=== PATIENT | male | born 1990 | race Caucasian/White ===

== ENCOUNTER 2019-04-11 21:31 | Emergency (ER) | payer MEDICAID, SELFPAY ==
[2019-04-11 21:35] VITALS: BP 137/80; PULSE 102; RESP 20; TEMP 37.6; O2SAT 96; BMI 24.0
--- NOTE | 2019-04-11 21:45 | ED.GENADULT ---
HPI - General Adult General Chief complaint: Wound/Laceration Stated complaint: laceration to left hand Time Seen by Provider: 04/11/19 21:38 Source: patient Mode of arrival: ambulatory Limitations: no limitations History of Present Illness HPI narrative: 28-year-old male here for evaluation of a cut to the index finger of his left hand. He stated that he cut it on a knife earlier today. Came into the emergency department for evaluation Related Data Home Medications Medication Instructions Recorded Confirmed acetaminophen 325 mg PO PRN PRN #0 05/22/17 ibuprofen 400 mg PO TID PRN #0 05/22/17 Previous Rx's Medication Instructions Recorded clindamycin HCl 300 mg PO Q6H #28 cap 01/07/18 Review of Systems Constitutional Denies fever(s) Musculoskeletal Denies tingling Comments: Pain to left hand Integumentary/Breasts Comments: Cut to the left hand Neurologic Denies tingling Hematologic/Lymphatic Denies easy bleeding and Denies easy bruising [facility] Medical History (Updated 04/12/19 @ 03:01 by Jesus Rivas DO) Patient denies medical problems (Acute) Social History Smoking Status: Current every day smoker Social History Smoking Status: Current every day smoker Exam Initial Vital Signs Initial Vital Signs: Vital Signs Temperature 99.6 F 04/11/19 21:35 Pulse Rate 102 H 04/11/19 21:35 Respiratory Rate 20 04/11/19 21:35 Blood Pressure 137/80 04/11/19 21:35 Pulse Oximetry 96 04/11/19 21:35 HENMT Head: normal to inspection and normocephalic Cardio Pulses: radial pulses present on the left Skin Other: 4 cm ?be ?laceration to the radial aspect of the left index finger. No active bleeding. Neuro Sensory Exam: no sensory deficits noted Extrem General: capillary refill normal Psych Appearance: grossly normal and well kempt Procedures Laceration Repair Laceration 1: Site: hand Side (If applicable): left Size (cm): 4 Description: other (?V? shaped) Depth: simple, single layer Local Anesthetic: lidocaine 1% Amount of anesthesia used (mL): 5 Pre-repair: wound explored, irrigated extensively and deep structures intact Skin layer closed with: nylon Size (cm): 4-0 Number of sutures: 5 Technique: simple, interrupted Course Vital Signs - 8 hr 04/11/19 21:35 04/11/19 22:35 Temperature 99.6 F 99.3 F Pulse Rate 102 H 90 Respiratory Rate 20 16 Blood Pressure 137/80 132/76 Pulse Oximetry 96 97 Medical Decision Making MDM Narrative Medical decision making narrative: Neurovascularly intact. Laceration repaired as described above. He was given care instructions return precautions. He expressed understanding and agreement with plan. Discharge Plan Departure Patient Disposition: Home Clinical Impression: Laceration of finger of left hand Qualifiers: Encounter type: initial encounter Finger: index finger Damage to nail status: without damage Foreign body presence: without foreign body Qualified Code(s): S61.211A - Laceration without foreign body of left index finger without damage to nail, initial encounter Discharge Date/Time: 04/11/19 22:33 Interventions: ED Discharge Assessment Last Done: 04/11/19 22:35 Instructions: DI for Laceration Repair Activity Restrictions/Additional Instructions: Keep the bandage on for the next 24 hours. After that you can wash your hands like normal. Do not soak your hand in anything. The stitches do need to be removed in 7-10 days. Return to the emergency department for any new or worsening symptoms Prescriptions: No Action acetaminophen 325 MG tablet 325 mg PO PRN PRNQty: 0 RF: 0 ibuprofen 400 MG tablet 400 mg PO TID PRNQty: 0 RF: 0 clindamycin HCl 300 MG capsule 300 mg PO Q6H Qty: 28 RF: 0
[2019-04-11 22:35] VITALS: BP 132/76; PULSE 90; RESP 16; TEMP 37.4; O2SAT 97
== END 2019-04-11 22:33 | disposition home or self-care (01) ==
PROVIDERS: Emergency Provider Emergency Medicine
DX: S61.211A Laceration without foreign body of left index finger without damage to nail, initial encounter (principal); W26.0XXA Contact with knife, initial encounter
CPT/HCPCS: 12002; 99282; 99283

== ENCOUNTER 2020-08-08 07:37 | Emergency (ER) | payer MEDICAID, SELFPAY ==
[2020-08-08 07:45] VITALS: BP 157/76; PULSE 104; RESP 18; TEMP 36.9; O2SAT 99; BMI 23.0
[2020-08-08] MEDS: KETOROLAC 60 MG/2 ML VIAL 30 MG IM (08:12)
--- NOTE | 2020-08-08 08:15 | ED_ITS ---
HPI - Skin/Abscess/Foreign Bdy General Chief complaint: Skin/Abscess/Foreign Body Stated complaint: abscess or something in right arm Time Seen by Provider: 08/08/20 07:45 Source: patient Mode of arrival: Ambulatory Limitations: no limitations History of Present Illness HPI narrative: 29-year-old gentleman with a history of opioid and methamphetamine use disorder presents with increasing pain and redness in the ri ght forearm after injecting 2 days ago. He had not had any heroin for couple of days was in mild withdrawal and you some old cotton balls. He noted that he definitely was in the vein and had significant vasospasm immediately after injection. Warmth and erythema started within the last 6-12 hours. He describes no overall fevers. He has had nausea vomiting and abdominal pain all associated with heroin withdrawal. Related Data Home Medications Medication Instructions Recorded Confirmed acetaminophen 325 mg PO PRN PRN #0 05/22/17 ibuprofen 400 mg PO TID PRN #0 05/22/17 Previous Rx's Medication Instructions Recorded clindamycin HCl 300 mg PO Q6H #28 cap 01/07/18 buprenorphine-naloxone 1 film SL DAILY #4 each 08/08/20 clindamycin HCl 300 mg PO TID #21 cap 08/08/20 sulfamethoxazole-trimethoprim 1 tab PO BID #14 tab 08/08/20 Allergies Allergy/AdvReac Type Severity Reaction Status Date / Time No Known Drug Allergies Allergy Verified 08/08/20 07:52 Review of Systems Review of Systems Narrative: Multiple skin lesions from his methamphetamine use, poor dentition, history of a heart murmur. Remainder of review of systems is otherwise unremarkable other than as noted in HPI Patient History Medical History (Updated 08/08/20 @ 08:23 by Orly Portillo MD) Methamphetamine abuse (Acute) Opioid use disorder (Acute) Patient denies medical problems (Acute) Social History (Updated 08/08/20 @ 08:24 by Orly Portillo MD) Smoking Status: Current every day smoker additional social history: 08/08/2020 essentially homeless, currently living in a tent Smoking Status: Current every day smoker alcohol intake frequency: holidays/special occasions only Substance Use Type: heroin, methamphetamine and other Exam Narrative Exam Narrative: General: Chronically ill-appearing. Able to give a complete and coherent history. HEENT: Moist mucous membranes, normal sclera with reactive pupils, poor dentition Neck: No JVD, supple Respiratory: Lungs are clear to auscultation, no wheezing no rales no rhonchi. Full and symmetrical air movement Cardiac: Regular rate and rhythm no murmurs with careful auscultation, no bruits Skin: Multiple skin lesions over the face consistent with ?picking?. Neurologic: Grossly neurologically intact with no obvious asymmetries or abnormalities Extremities: Multiple track esquivel and well-healed areas of self cutting. Right forearm with cellulitis extending toward the elbow without obvious abscess. No warmth or tenderness at the elbow or wrist joint. Neurovascularly intact distally. Psych: Cooperative, appropriate insight and affect Initial Vital Signs Initial Vital Signs: Vital Signs Temperature 98.5 F 08/08/20 07:45 Pulse Rate 104 H 08/08/20 07:45 Respiratory Rate 18 08/08/20 07:45 Blood Pressure 157/76 H 08/08/20 07:45 Pulse Oximetry 99 08/08/20 07:45 Course Orders Ordered: Discontinued Medications Ketorolac Tromethamine (Toradol) 30 mg IM NOW ONE Stop: 08/08/20 08:02 Last Admin: 08/08/20 08:12 Dose: 30 mg Documented by: BTONER Vital Signs Vital signs: Vital Signs - 8 hr 08/08/20 07:45 Temperature 98.5 F Pulse Rate 104 H Respiratory Rate 18 Blood Pressure 157/76 H Pulse Oximetry 99 [facility] - Skin/Abscess/Foreign Bdy Medical Records Attestation: I reviewed the patient's medical records. Lab Data Attestation: I reviewed the patient's lab results. 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 He has been trying to significantly reduces heroin use and has plans to [facility] and begin Suboxone again. He has used Suboxone before and is familiar with precipitated withdrawal. He last used approximately 6 hours prior to arrival in is not appropriate to dose currently. Will give him 4 days of Suboxone to help with withdrawal symptoms as well as pain control with the cellulitis. He is safe for home discharge. Discharge Plan Departure Patient Disposition: Home Clinical Impression: Methamphetamine abuse, Opioid use disorder Cellulitis Qualifiers: Site of cellulitis: extremity Site of cellulitis of extremity: upper extremity Laterality: right Qualified Code(s): L03.113 - Cellulitis of right upper limb Instructions: DI for Cellulitis -- Adult Activity Restrictions/Additional Instructions: Thank you for coming in today You do have a cellulitis developing in your right arm that does not yet look like an abscess. I would expect the redness to get a little bit worse over the course of today but then began to improve after he started the antibiotics. If you feel that you are getting worse, developed significant fevers or an obvious abscess please return to the emergency department Please complete both the course of clindamycin and Septra. I have given you 4 days of Suboxone to use, 1 strip per day until you are able to get into [facility] later this week. We have talked about precipitated withdrawal, please make sure you do not take it until your withdrawal symptoms are significant enough. I wish you the best Prescriptions: New clindamycin HCl 300 mg capsule 300 mg PO TID Qty: 21 RF: 0 sulfamethoxazole-trimethoprim 800-160 mg tablet 1 tab PO BID Qty: 14 RF: 0 buprenorphine-naloxone 8-2 mg film 1 film SL DAILY Qty: 4 RF: 0 No Action acetaminophen 325 MG tablet 325 mg PO PRN PRNQty: 0 RF: 0 ibuprofen 400 MG tablet 400 mg PO TID PRNQty: 0 RF: 0 clindamycin HCl 300 MG capsule 300 mg PO Q6H Qty: 28 RF: 0
[2020-08-08 08:37] VITALS: BP 134/68; PULSE 85; RESP 18; O2SAT 100
== END 2020-08-08 08:37 | disposition home or self-care (01) ==
PROVIDERS: Emergency Provider Emergency Medicine
DX: L03.113 Cellulitis of right upper limb (principal); F15.10 Other stimulant abuse, uncomplicated; F11.99 Opioid use, unspecified with unspecified opioid-induced disorder
CPT/HCPCS: 96372; 99283; J1885

== ENCOUNTER 2020-09-15 20:33 | Emergency (ER) | payer MEDICAID, SELFPAY ==
[2020-09-15 20:35] VITALS: BP 133/85; PULSE 94; RESP 14; TEMP 36.8; O2SAT 100; BMI 22.3
--- NOTE | 2020-09-15 20:44 | DI.RAD.S_ITS ---
PROCEDURE: XR ANKLE RT MIN 3V INDICATIONS: rolled ankle TECHNIQUE: 3 views of the ankle were acquired. COMPARISON: None. FINDINGS: Bones: No fractures or dislocations. Ankle mortise is normally aligned. No suspicious bony lesions. Soft tissues: There is soft tissue swelling over the lateral malleolus. There is a small tibiotalar joint effusion. Achilles tendon appears normal. IMPRESSION: 1. No fracture or dislocation. Dictated by: Adrian Almodovar M.D. on 09/15/2020 at 21:55 Approved by: Adrian Almodovar M.D. on 09/15/2020 at 21:56
== END 2020-09-15 21:58 | disposition left against medical advice (07) ==
PROVIDERS: Emergency Provider Emergency Medicine
DX: S99.911A Unspecified injury of right ankle, initial encounter (principal)
CPT/HCPCS: 73610; 99283

== ENCOUNTER 2021-06-10 17:26 | Inpatient (IN) | payer MEDICAID, SELFPAY ==
[2021-06-10] VITALS (11 sets, daily range): BP systolic 125–158; BP diastolic 71–87; PULSE 76–107; RESP 11–25; TEMP 36.8–38.1; O2SAT 92–100; BMI 23.5
--- NOTE | 2021-06-10 17:54 | DI.RAD.S_ITS ---
PROCEDURE: XR CHEST 1V INDICATIONS: suspected sepsis TECHNIQUE: One view of the chest was acquired. COMPARISON: [facility], , CHEST 1 VIEW, 10/19/2017, 22:22. FINDINGS: Surgical changes and devices: None. Lungs and pleura: Lungs are clear. No pleural effusions or pneumothorax. Mediastinum: Mediastinal contours appear normal. Heart size is normal. Bones and chest wall: No suspicious bony lesions. Overlying soft tissues appear unremarkable. IMPRESSION: No acute cardiopulmonary disease. Dictated by: Ju Willis M.D. on 06/10/2021 at 18:53 Approved by: Ju Willis M.D. on 06/10/2021 at 18:53
--- NOTE | 2021-06-10 18:16 | DI.RAD.S_ITS ---
PROCEDURE: XR TIBIA FIBULA LT 2V INDICATIONS: wound TECHNIQUE: 2 views of the tibia and fibula were acquired. COMPARISON: None. FINDINGS: Bones: No fractures or dislocations. No suspicious bony lesions. Soft tissues: No suspicious soft tissue calcifications or masses. Soft tissue defect over the anterior pretibial tissues without underlying foreign body, soft tissue gas, or periostitis. IMPRESSION: 1. Pretibial wound without underlying bone changes to suggest osteomyelitis, however radiographs are insensitive in the early phase of osteomyelitis. Dictated by: Ju Willis M.D. on 06/10/2021 at 18:53 Approved by: Ju Willis M.D. on 06/10/2021 at 18:54
[2021-06-10] MEDS: SODIUM CHLORIDE 0.9% 1,000 ML 1000 ML IV (18:41)
[2021-06-10 18:45] LABS: Add Manual Diff / Slide Review NO; Basophils Absolute Auto 200 /uL (0-100); Basophils Percent Auto 1.6 % (0-2); Eosinophils Absolute Auto 100 /uL (0-450); Eosinophils Percent Auto 0.5 % (2-4); Hematocrit 33.5 % (41-53); Hemoglobin 10.8 g/dL (13.5-17.5); Lymphocytes Absolute Auto 1100 /uL (1100-4500); Lymphocytes Percent Auto 8.7 % (25-40); Mean Corpuscular HGB Conc 32.1 % (30-36); Mean Corpuscular Hemoglobin 25.9 PG (26-34); Mean Corpuscular Volume 80.8 fL (80-100); Monocytes Absolute Auto 700 /uL (0-900); Monocytes Percent Auto 5.6 % (3-14); Neutrophils Absolute Auto 11100 /uL (1500-7000); Neutrophils Percent Auto 83.6 % (50-75); Platelet Count 322 X10^3/uL (150-400); Red Blood Cell Count 4.15 X10^6/uL (4.5-5.9); White Blood Cell Count 13.3 X10^3/uL (4.5-11.0)
--- NOTE | 2021-06-10 18:46 | ED_ITS ---
HPI - Fever General Chief Complaint: Fever Stated Complaint: MRSA Right Lower Leg Time Seen by Provider: 06/10/21 18:06 Source: patient Mode of arrival: Wheelchair Limitations: no limitations History of Present Illness HPI Narrative: This is a 30-year-old male comes emergency department with complaint of left lower leg infection. Patient states it started as a scrape on his left kruger 9 days ago and increasing breakdown of the skin, redness and now drainage. Patient states he was seen at [facility] and prescribed antibiotics but never took them. Patient states over the last 2 or 3 days he has developed fevers and hot flashes. He has had a little sensation of shortness of breath no chest pain or pressure. Some nausea occasional vomiting. He denies any diarrhea or constipation. He states he has had some occasional tingling particularly when he sleeping. He has quite a bit of pain flexion- extension. And at the site. He has had increasing spreading redness. Patient denies any major medical issues. He does admit to heroin and methamphetamine abuse and uses IV drugs. He states he is not injected at that location in the past. Patient uses tobacco, he does use alcohol occasionally. He does not have a primary care physician. Related Data Home Medications Medication Instructions Recorded Confirmed No Known Home Medications 06/10/21 06/10/21 Allergies Allergy/AdvReac Type Severity Reaction Status Date / Time No Known Drug Allergies Allergy Verified 09/15/20 20:40 Review of Systems Review of Systems ROS Unobtainable: All systems reviewed & are unremarkable except as noted in HPI and below Patient History Medical History (Updated 06/10/21 @ 23:05 by Dayo Purcell MD) Heroin user Methamphetamine abuse Opioid use disorder Patient denies medical problems Social History marital status: number of children: 2 household members: friend(s) housing: homeless ( stays with friends) Smoking Status: Current every day smoker additional social history: 08/08/2020 essentially homeless, currently living in a tent Smoking Status: Current every day smoker alcohol intake frequency: holidays/special occasions only Substance Use Type: heroin, methamphetamine and other Exam Narrative Exam Narrative: GENERAL: Alert and oriented x three, male in mild distress. HEENT: Head normocephalic, atraumatic, EOMI, pupils reactive, face symmetric, moist mucous membranes NECK: Supple, full range of motion CARDIOVASCULAR: Regular rate and rhythm without murmurs, rubs or gallops. RESPIRATORY: Breath sounds equal bilaterally, no wheezes rales or rhonchi. ABDOMEN: Soft, nontender. Normoactive bowel sounds all 4 quadrants. No guarding or rebound, rigidity, no mass : No CVA tenderness EXTREMITIES: Normal range of motion, no clubbing. Patient has 2 wounds on his anterior kruger a larger is approximately 4 x 3 cm into the subcutaneous tissue. I do not appreciate any obvious bone but he does have obvious purulent drainage there is a smaller wound that is about 1/2 by 1 cm that is not as deep but to the skin and draining purulent fluid. Patient has surrounding erythema spreading and somewhat circumferential with some or other small scabbed and healing wounds in various locations of his lower extremity. Patient has swelling of the lower extremity but stops at the foot where his sock line is. He has 2+ dorsalis pedis P. Normal sensation. He has normal range of motion but has have increased pain with dorsiflexion and plantar flexion. NEUROLOGICAL: Cranial nerves II through XII grossly intact. Moving all extremities SKIN: Warm, dry, no petechiae, no rashes. 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) Stat Complete Blood Count AUTO DIFF Stat Comprehensive Metabolic Panel Stat Ethanol (ETOH) Stat Lactate (Lactic Acid) Stat Lipase Stat Procalcitonin Stat 06/10/21 19:25 Wound Culture and Gram Stain Stat 06/10/21 20:58 Urine Drug Screen, Rapid Stat Acetaminophen (Acetaminophen 325 Mg Tablet) 650 mg PO Q6HR PRN PRN Reason: Fever/Mild Pain (1-3) Last Admin: 06/11/21 00:13 Dose: 650 mg Documented by: ABIOLA Docusate Sodium (Docusate 100 Mg Capsule) 100 mg PO BID [facility] Last Admin: 06/10/21 22:47 Dose: 100 mg Documented by: JEFF Enoxaparin Sodium (Enoxaparin 40 Mg/0.4 Ml Syringe) 40 mg SUBCUT DAILY [facility] Sodium Chloride (Normal Saline 0.9%) 1,000 mls @ 100 mls/hr IV CONT [facility] Last Admin: 06/10/21 22:48 Dose: 100 mls/hr Documented by: JEFF Piperacillin Sod/Tazobactam (Sod 3.375 gm/ Sodium Chloride) 100 mls @ 25 mls/hr IV Q8H [facility] Vancomycin HCl/Dextrose (Vancomycin) 1,500 mg in 300 mls @ 200 mls/hr IV Q12H [facility] Ketorolac Tromethamine (Ketorolac 30 Mg/Ml Vial) 30 mg IV Q6HR PRN PRN Reason: Pain, Severe (7-10) Stop: 06/15/21 21:09 Last Admin: 06/11/21 00:14 Dose: 30 mg Documented by: ABIOLA Morphine Sulfate (Morphine 2 Mg/Ml Inj) 2 mg IV Q3H PRN PRN Reason: Pain, Severe (7-10) Naloxone HCl (Naloxone 0.4 Mg/Ml Vial) 0.2 mg IV Q2MIN PRN PRN Reason: Opiate Reversal Ondansetron HCl (Ondansetron 4 Mg/2 Ml Inj) 4 mg IV Q8HR PRN PRN Reason: Nausea And Vomiting Pantoprazole Sodium (Pantoprazole Dr 20 Mg Tablet) 20 mg PO 0700,2100 [facility] Vancomycin HCl (Vancomycin Per Pharmacy) 1 request MISC NOW ONE Stop: 06/10/21 21:15 Discontinued Medications Sodium Chloride (Normal Saline 0.9%) 1,000 mls @ 1,000 mls/hr IV BOLUS ONE Stop: 06/10/21 18:53 Last Infusion: 06/10/21 19:33 Dose: 0 mls/hr Documented by: Admin: 06/10/21 18:41 Dose: 1,000 mls/hr Documented by: KASSY Vancomycin HCl/Dextrose (Vancomycin) 1,500 mg in 300 mls @ 200 mls/hr IV NOW ONE Stop: 06/10/21 20:25 Last Infusion: 06/10/21 21:12 Dose: 0 mls/hr Documented by: CTR.HANDER Admin: 06/10/21 19:32 Dose: 200 mls/hr Documented by: CTR.HANDER Piperacillin Sod/Tazobactam (Sod 4.5 gm/ Sodium Chloride) 100 mls @ 200 mls/hr IV NOW ONE Stop: 06/10/21 22:29 Last Admin: 06/11/21 00:12 Dose: 200 mls/hr Documented by: ABIOLA Consultations Consultation #1: PATRICIA Howard, accepts asks for general surgery consult and add on etoh and rapid drug screen. Saw patient here in the department. Consultation #2: Dr. Purcell, happy to follow with patient for open infected wounds on anterior right leg. Time: 21:00 Vital Signs Vital signs: Vital Signs - 8 hr 06/10/21 19:30 06/10/21 20:00 06/10/21 20:01 Pulse Rate 86 88 98 H Respiratory Rate 11 L 20 25 H Blood Pressure 138/81 Pulse Oximetry 100 92 92 MDM - Fever Lab Data Result diagrams: 06/10/21 18:30 06/10/21 18:30 Labs: Lab Results 06/10/21 06/10/21 06/10/21 Range/Units 18:30 18:30 18:30 WBC 13.3 H (4.5-11.0) X10^3/uL RBC 4.15 L (4.5-5.9) X10^6/uL Hgb 10.8 L (13.5-17.5) g/dL Hct 33.5 L (41-53) % MCV 80.8 (80-100) fL MCH 25.9 L (26-34) PG MCHC 32.1 (30-36) % RDW 15.0 H (11.6-14.8) % Plt Count 322 (150-400) X10^3/uL Neut % (Auto) 83.6 H (50-75) % Lymph % (Auto) 8.7 L (25-40) % [place] % (Auto) 5.6 (3-14) % Eos % (Auto) 0.5 L (2-4) % Baso % (Auto) 1.6 (0-2) % Neut # (Auto) 55467 H (0121-7298) /uL Lymph # (Auto) 1100 (9788-2526) /uL [place] # (Auto) 700 (0-900) /uL Eos # (Auto) 100 (0-450) /uL Baso # (Auto) 200 H (0-100) /uL Sodium 138 (137-145) mmol/L Potassium 4.1 (3.4-5.1) mmol/L Chloride 106 (98-107) mmol/L Carbon Dioxide 27 (22-32) mmol/L BUN 14 (9-20) mg/dL Creatinine 0.75 (0.66-1.25) mg/dL Estimated GFR > 60.0 (>60) mL/min BUN/Creatinine Ratio 18.7 (6-22) Glucose 108 H (70-100) mg/dL Lactate 0.7 (0.7-2.1) mmol/L Calcium 8.5 (8.4-10.2) mg/dL Total Bilirubin 0.2 (0.2-1.3) mg/dL AST 16 L (17-59) IU/L ALT 7 (<50) IU/L Alkaline Phosphatase 54 (38-126) U/L Total Protein 6.8 (6.3-8.2) g/dL Albumin 3.5 (3.5-5.0) g/dL Globulin 3.3 (1.7-4.1) g/dL Albumin/Globulin Ratio 1.1 (1.0-2.8) Lipase 50 (23-300) U/L Procalcitonin 0.42 (<0.5) ng/mL Ethyl Alcohol ( - 10) mg/dL SARS-CoV-2 (PCR) (Negative) 06/10/21 06/10/21 Range/Units 18:30 18:30 WBC (4.5-11.0) X10^3/uL RBC (4.5-5.9) X10^6/uL Hgb (13.5-17.5) g/dL Hct (41-53) % MCV (80-100) fL MCH (26-34) PG MCHC (30-36) % RDW (11.6-14.8) % Plt Count (150-400) X10^3/uL Neut % (Auto) (50-75) % Lymph % (Auto) (25-40) % [place] % (Auto) (3-14) % Eos % (Auto) (2-4) % Baso % (Auto) (0-2) % Neut # (Auto) (0191-9029) /uL Lymph # (Auto) (8549-1650) /uL [place] # (Auto) (0-900) /uL Eos # (Auto) (0-450) /uL Baso # (Auto) (0-100) /uL Sodium (137-145) mmol/L Potassium (3.4-5.1) mmol/L Chloride (98-107) mmol/L Carbon Dioxide (22-32) mmol/L BUN (9-20) mg/dL Creatinine (0.66-1.25) mg/dL Estimated GFR (>60) mL/min BUN/Creatinine Ratio (6-22) Glucose (70-100) mg/dL Lactate (0.7-2.1) mmol/L Calcium (8.4-10.2) mg/dL Total Bilirubin (0.2-1.3) mg/dL AST (17-59) IU/L ALT (<50) IU/L Alkaline Phosphatase (38-126) U/L Total Protein (6.3-8.2) g/dL Albumin (3.5-5.0) g/dL Globulin (1.7-4.1) g/dL Albumin/Globulin Ratio (1.0-2.8) Lipase (23-300) U/L Procalcitonin (<0.5) ng/mL Ethyl Alcohol < 10 ( - 10) mg/dL SARS-CoV-2 (PCR) Negative (Negative) Imaging Data Extremity x-ray #1: Radiologist's Impression: Launch?[address] [address] XRay Report Signed Patient: Ambrose Jean-Baptiste MR#: [id number] : 1990 Acct:[id number] Age/Sex: 30 / M Date of Service: 06/10/21 Loc: ED Accession Number: [id number] ?? Procedure: XR tibia fibula LT 2V Ordering Provider: Greta Ambrose D.O. PROCEDURE:? XR TIBIA FIBULA LT 2V ? INDICATIONS:? wound ? TECHNIQUE:? 2 views of the tibia and fibula were acquired.? ? COMPARISON:? None. ? FINDINGS:? ? Bones:? No fractures or dislocations.? No suspicious bony lesions.? ? Soft tissues:? No suspicious soft tissue calcifications or masses.? Soft tissue defect over the anterior pretibial tissues without underlying foreign body, soft tissue gas, or periostitis. ? IMPRESSION:? 1. Pretibial wound without underlying bone changes to suggest osteomyelitis, however radiographs are insensitive in the early phase of osteomyelitis.? ? ? Dictated by: Ju Willis M.D. on 06/10/2021 at 18:53 ? ? Approved by: Ju Willis M.D. on 06/10/2021 at 18:54?? Chest x-ray: Radiologist's Impression: [address] [address] XRay Report Signed Patient: Ambrose Jean-Baptiste MR#: [id number] : 1990 Acct:[id number] Age/Sex: 30 / M Date of Service: 06/10/21 Loc: ED Accession Number: [id number] ?? Procedure: XR chest 1V Ordering Provider: Karena Romo D.O. PROCEDURE:? XR CHEST 1V ? INDICATIONS:? suspected sepsis ? TECHNIQUE:? One view of the chest was acquired.? ? COMPARISON:? [facility], , CHEST 1 VIEW, 10/19/2017, 22:22. ? FINDINGS:? ? Surgical changes and devices:? None.? ? Lungs and pleura:? Lungs are clear.? No pleural effusions or pneumothorax.? ? Mediastinum:? Mediastinal contours appear normal.? Heart size is normal.? ? Bones and chest wall:? No suspicious bony lesions.? Overlying soft tissues appear unremarkable.? ? IMPRESSION:? No acute cardiopulmonary disease.? ? ? Dictated by: Ju Willis M.D. on 06/10/2021 at 18:53 ? ? Approved by: Ju Willis M.D. on 06/10/2021 at 18:53?? ECG Data Attestation: I personally reviewed and interpreted this ECG as follows: Interpretation: Normal sinus rhythm rate of 70 9p are 138 QRS 80 QTC 433. No acute ST changes appreciated. MDM Narrative Medical decision making narrative: This is a 30-year-old male who comes with complaint infection in his right lower leg. Patient meets septic criteria with fever and tachycardia, white count is 13. Patient has obvious source of infection 2 open wound draining purulent fluid on his right anterior kruger. Patient was started on vancomycin. Patient does have a history of IV drug abuse using methamphetamine and heroin. Patient states his last use was prior to arrival in department and he is currently not having any withdrawal symptoms. He denies injecting at that particular location. Patient's labs were reviewed. X-ray does not show any acute bony changes retained foreign bodies. Spoke with the hospitalist who accepts. Wound culture was sent and general surgery was consulted at the hospitalist request. Discharge Plan Departure Patient Disposition: Admitted As Inpatient Clinical Impression: Cellulitis and abscess of left leg Admit Date/Time: 06/10/21 20:49 Admit Provider: Shawna Howard
[2021-06-10 18:49] LABS: Lactate (Lactic Acid) 0.7 mmol/L (0.7-2.1)
[2021-06-10 18:50] LABS: Alanine Aminotransferase 7 IU/L (<50); Albumin 3.5 g/dL (3.5-5.0); Albumin Globulin Ratio 1.1 (1.0-2.8); Alkaline Phosphatase 54 U/L (38-126); Aspartate Aminotransferase 16 IU/L (17-59); BUN Creatinine Ratio 18.7 (6-22); Bilirubin Total 0.2 mg/dL (0.2-1.3); Blood Urea Nitrogen 14 mg/dL (9-20); Calcium 8.5 mg/dL (8.4-10.2); Carbon Dioxide 27 mmol/L (22-32); Chloride 106 mmol/L (98-107); Estimated Glomerular Filt Rate > 60.0 mL/min (>60); Globulin 3.3 g/dL (1.7-4.1); Glucose 108 mg/dL (70-100); HEMOLYSIS < 15 (0-50); Lipase 50 U/L (23-300); Potassium 4.1 mmol/L (3.4-5.1); Sodium 138 mmol/L (137-145); Total Protein 6.8 g/dL (6.3-8.2)
[2021-06-10 19:06] LABS: Procalcitonin 0.42 ng/mL (<0.5)
[2021-06-10] MEDS: VANCOMYCIN 1,500 MG/300 ML PIGGYBACK 200 MG IV (19:32)
[2021-06-10 19:34] LABS: COVID19 - ADMIT (NP swab/PCR) Negative (Negative)
[2021-06-10 20:47] LABS: Ethanol (ETOH) < 10 mg/dL
[2021-06-10 21:09] LABS: UR Morphine/Opiate cutoff 300 Positive (Negative); Ur Creatinine Normal (Normal); Ur Specific Gravity Normal (Normal); Urine Amphetamines Positive (Negative); Urine Barbiturates Negative (Negative); Urine Benzodiazepines Negative (Negative); Urine Cocaine Negative (Negative); Urine MDMA Negative (Negative); Urine Methadone Negative (Negative); Urine Methamphetamines Positive (Negative); Urine Oxycodone Negative (Negative); Urine Phencyclidine Negative (Negative); Urine Tetrahydrocannabinol Negative (Negative); Urine Tricyclic Antidepressant Negative (Negative); Urine pH Normal (Normal)
--- NOTE | 2021-06-10 21:26 | P.HP_ITS ---
History of Present Illness History of Present Illness Date Patient Seen: 06/10/21 Time Patient Seen: 21:00 Chief complaint: MRSA Right Lower Leg Narrative: Ambrose Jean-Baptiste is a 30-year-old male with a history of ongoing and current IV drug use with heroin and methamphetamine presented today to the emergency department with a wound on his left anterior kruger. He was seen at [facility] emergency department approximately week and half ago and was discharged on oral antib iotics. Patient states he was unable to get the antibiotics. He states that he was trying to get into a friend's truck and scraped his leg against it and cut himself. He denies injecting himself on his anterior lower legs. Denies He does not see a medical provider regularly. He came back in today because he had a subjective fever for the past few days has had nausea, chills, sweats but denies shortness of breath vomiting. He does state he has been told he has a heart murmur. Tib fib x-ray ordered in the ED indicated ?Pretibial wound without underlying bone changes to suggest osteomyelitis, however radiographs are insensitive in the early phase of osteomyelitis.Patient's temp is 100.5?, blood pressure 138/81, heart rate 98, respiratory rate 25, oxygen saturation 92% on room air, he weighs 72.5 kg. Has an elevated WBC of 13.3, RBC 4.15, hemoglobin 10.8, hematocrit 33.5, platelet count 322, has a left shift of 11,000, metabolic panel is essentially within normal limits with exception of a mildly elevated glucose at 1:08 a.m., liver enzymes within normal limits, he is positive for opiates amphetamine and methamphetamines in his urine. Alcohol level is within normal limits, COVID-19 PCR is negative. Patient History Medical History Methamphetamine abuse Opioid use disorder Patient denies medical problems Family & Social History Tobacco & Substance use: Smoking Status Current every day smoker alcohol intake frequency holiday/special occasion Substance Use Type other,heroin,methamphetamine Meds Home Medications and Allergies Home Medications Medication Instructions Recorded Confirmed Type acetaminophen 325 mg tablet 325 mg PO PRN PRN #0 05/22/17 History ibuprofen 400 mg tablet 400 mg PO TID PRN #0 05/22/17 History clindamycin HCl 300 mg capsule 300 mg PO Q6H #28 cap 01/07/18 Rx buprenorphine 8 mg-naloxone 2 mg 1 film SL DAILY #4 each 08/08/20 Rx sublingual film clindamycin HCl 300 mg capsule 300 mg PO TID #21 cap 08/08/20 Rx sulfamethoxazole 800 1 tab PO BID #14 tab 08/08/20 Rx mg-trimethoprim 160 mg tablet Allergies Allergy/AdvReac Type Severity Reaction Status Date / Time No Known Drug Allergies Allergy Verified 09/15/20 20:40 Review of Systems Review of Systems ROS: Yes All systems reviewed with the patient and are negative except as otherwise documented Exam Vital Signs (past 8 hours): - 06/10/21 17:31 06/10/21 18:06 06/10/21 18:30 Temperature 100.5 F H Pulse Rate 107 H 93 H 76 Respiratory Rate 20 16 Blood Pressure 133/71 125/76 136/81 Pulse Oximetry 96 98 100 06/10/21 19:00 06/10/21 19:30 06/10/21 20:00 Temperature Pulse Rate 80 86 88 Respiratory Rate 14 11 L 20 Blood Pressure 149/84 H 138/81 Pulse Oximetry 100 100 92 06/10/21 20:01 Temperature Pulse Rate 98 H Respiratory Rate 25 H Blood Pressure Pulse Oximetry 92 Oxygen Delivery Method Room Air Narrative Exam Narrative: Gen: Alert, oriented, 30 y.o. male, dischevelled appearing HEENT: normocephalic, atraumatic, conjunctiva clear, sclera non-icteric, oral mucosa pink and moist, poor dentition w/missing teeth Neck: supple, full ROM, no JVD, trachea is midline Resp: Lungs CTA, non-labored breathing CV: RRR, no murmur or rubs Abd: soft, non-tender, normoactive BTs Skin: multiple centimeter diameter lesions on upper and lower extremities. Weeping, ulcerated open wound on left anterior kruger with peripheral necrotic tissue Neuro: Alert and oriented X 4 w/no focal deficits. Speech clear and coherent. Extremities: moves all 4 extremities, is ambulatory, negative Len?s sign Psyche: normal mood and affect. Objective Labs Result Diagrams: 06/10/21 18:30 06/10/21 18:30 Labs: Laboratory Results - last 24 hr 06/10/21 06/10/21 06/10/21 18:30 18:30 18:30 WBC 13.3 H RBC 4.15 L Hgb 10.8 L Hct 33.5 L MCV 80.8 MCH 25.9 L MCHC 32.1 RDW 15.0 H Plt Count 322 Neut % (Auto) 83.6 H Lymph % (Auto) 8.7 L [place] % (Auto) 5.6 Eos % (Auto) 0.5 L Baso % (Auto) 1.6 Neut # (Auto) 72068 H Lymph # (Auto) 1100 [place] # (Auto) 700 Eos # (Auto) 100 Baso # (Auto) 200 H Sodium 138 Potassium 4.1 Chloride 106 Carbon Dioxide 27 BUN 14 Creatinine 0.75 Estimated GFR > 60.0 BUN/Creatinine Ratio 18.7 Glucose 108 H Lactate 0.7 Calcium 8.5 Total Bilirubin 0.2 AST 16 L ALT 7 Alkaline Phosphatase 54 Total Protein 6.8 Albumin 3.5 Globulin 3.3 Albumin/Globulin Ratio 1.1 Lipase 50 Procalcitonin 0.42 U Opiates 300ng/mL cut Ur Oxycodone Screen Urine Methadone Screen Ur Barbiturates Screen U Tricyclic Antidepress Ur Phencyclidine Scrn Ur Amphetamines Screen U Methamphetamines Scrn Ur MDMA Scrn (Ecstasy) U Benzodiazepines Scrn Urine Cocaine Screen U Marijuana (THC) Screen Ethyl Alcohol SARS-CoV-2 (PCR) 06/10/21 06/10/21 06/10/21 18:30 18:30 20:58 WBC RBC Hgb Hct MCV MCH MCHC RDW Plt Count Neut % (Auto) Lymph % (Auto) [place] % (Auto) Eos % (Auto) Baso % (Auto) Neut # (Auto) Lymph # (Auto) [place] # (Auto) Eos # (Auto) Baso # (Auto) Sodium Potassium Chloride Carbon Dioxide BUN Creatinine Estimated GFR BUN/Creatinine Ratio Glucose Lactate Calcium Total Bilirubin AST ALT Alkaline Phosphatase Total Protein Albumin Globulin Albumin/Globulin Ratio Lipase Procalcitonin U Opiates 300ng/mL cut Positive H Ur Oxycodone Screen Negative Urine Methadone Screen Negative Ur Barbiturates Screen Negative U Tricyclic Antidepress Negative Ur Phencyclidine Scrn Negative Ur Amphetamines Screen Positive H U Methamphetamines Scrn Positive H Ur MDMA Scrn (Ecstasy) Negative U Benzodiazepines Scrn Negative Urine Cocaine Screen Negative U Marijuana (THC) Screen Negative Ethyl Alcohol < 10 SARS-CoV-2 (PCR) Negative Assessment & Plan Assessment & Plan narrative: Ambrose Jean-Baptiste is admitted for antibiotic treatment and management a left lower extremity open wound and cellulitis. 1. Left lower extremity open wound and cellulitis, acute, present on admission * I have requested surgical consult * Vancomycin was started in the emergency room and I have added IV Zosyn 4.5 mg q.8 hours to cover Clostridium * Wound and blood cultures are pending * Consideration should be made as to having the patient undergo an e chocardiogram to rule out endocarditis if continued elevated white count and the patient complains of shortness of breath * MRI of the left lower extremity with and without contrast to rule out osteomy elitis scheduled for 06/11 2. IV drug use with methamphetamine and heroin, last used today and present on admission * Pain control need to be escalated as patient is likely tolerant to opioids * May require Ativan for withdrawal symptoms * Patient is a high risk for Against Medical Advice discharge * Do not recommend placement or discharge w/a PICC line VTE Prophylaxis: Wells risk score 0 Enoxaparin 40 mg subQ once daily Patient is admitted to the inpatient service due to the severity of disease, risks of further disease progression and this stay is expected to exceed 2 midnights. FEN: IV fluids: NS at , diet: general, labs: CBC, C/BMP, liver enzymes, procal Consultants Dr. Purcell, General Surgery care and involvement in the patient?s care is appreciated. Dispo: Likely home Code status: Full code as discussed with the patient who identifies as JUSTYN, Ilda Govea his surrogate and POA who he states is currently at the [facility]. [X] I confirmed that the patient's advanced care plan is present, code status is determined, or surrogate decision maker is listed on the patient's medical record. [X] I have utilized all available immediate resources to obtain, update, or review of the patient's current medications COVID-19 COVID-19 status: Negative Result date/Date tested (Pos, Neg/Pending): 06/10/21 Scores Wells' Criteria for PE Clinical signs and symptoms of DVT: No PE is #1 Dx or equally likely: No Heart rate > 100: No Immobilization at least 3 days or surg in previous 4 weeks: No History of PE or DVT: No Hemoptysis: No Quality VTE Deep Vein Thrombosis/Pulmonary Embolism Present on Admission: No MIPS - Admit The patient?s Advance Care plan is not present because I confirmed today that the patient does not wish or was not able to name a surrogate decision maker or provide an Advance Care Plan.: Yes MIPS - DC The patient has current or prior documentation of left ventricular ejection fraction (LVEF) less than 40%, or moderate or severely depressed left ventricular systolic function.: No
--- NOTE | 2021-06-10 21:59 | PC.NURSE ---
Wound on L kruger noted. Patient reports photo of wound obtained in ED prior to admission. Wound lavaged with sterile NS and covered with sterile 4X4 then Kerlix per Hospitalist Lee Awaiting assessment by surgery team.
[2021-06-10] MEDS: DOCUSATE 100 MG CAPSULE PO (22:47)
[2021-06-10] MEDS: SODIUM CHLORIDE 0.9% 1,000 ML 100 ML IV (22:48)
--- NOTE | 2021-06-10 22:57 | PM.CN ---
History of Present Illness Consult details Date Patient Seen: 06/10/21 Time Patient Seen: 23:00 Chief complaint: MRSA Right Lower Leg Narrative: Patient is a gentleman who bumped his left leg about 9 days ago. It began to swell and become red. He had had an infection on his left arm but that had been drained already. This wound began to drain. Came to the emergency room for care. Last heroin use was this morning. He expects to begin having withdrawal symptoms tomorrow. Says he has decreased the amount of heroin he has been using. He also uses methamphetamines. 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 Uses heroin on his arms. Denies use on his lower extremities. Exam Vital Signs (past 8 hours): - 06/10/21 17:31 06/10/21 18:06 06/10/21 18:30 Temperature 100.5 F H Pulse Rate 107 H 93 H 76 Respiratory Rate 20 16 Blood Pressure 133/71 125/76 136/81 Pulse Oximetry 96 98 100 06/10/21 19:00 06/10/21 19:30 06/10/21 20:00 Temperature Pulse Rate 80 86 88 Respiratory Rate 14 11 L 20 Blood Pressure 149/84 H 138/81 Pulse Oximetry 100 100 92 06/10/21 20:01 06/10/21 21:56 Temperature 99.3 F Pulse Rate 98 H 93 H Respiratory Rate 25 H 18 Blood Pressure 150/86 H Pulse Oximetry 92 100 Oxygen Delivery Method Room Air Narrative Exam Narrative: Thin. Seems somewhat wasted in his face and extremities. He has healing sores on both cheeks. Lungs are clear to auscultation. Heart regular rate and rhythm without murmur gallop. Abdomen is soft nontender there are no palpable masses. Patient has 3+ pulses dorsalis pedis and tibialis posterior nose left leg. He has 2 punched-out ulcers that go through skin and subcutaneous fat but not to bone. These are located in the pretibial tissues mid lower extremity On the left. I do not really see any other open sores on his extremities. He is missing numerous teeth. Objective Labs Result Diagrams: 06/10/21 18:30 06/10/21 18:30 Labs: Laboratory Results - last 24 hr 06/10/21 06/10/21 06/10/21 18:30 18:30 18:30 WBC 13.3 H RBC 4.15 L Hgb 10.8 L Hct 33.5 L MCV 80.8 MCH 25.9 L MCHC 32.1 RDW 15.0 H Plt Count 322 Neut % (Auto) 83.6 H Lymph % (Auto) 8.7 L [place] % (Auto) 5.6 Eos % (Auto) 0.5 L Baso % (Auto) 1.6 Neut # (Auto) 77853 H Lymph # (Auto) 1100 [place] # (Auto) 700 Eos # (Auto) 100 Baso # (Auto) 200 H Sodium 138 Potassium 4.1 Chloride 106 Carbon Dioxide 27 BUN 14 Creatinine 0.75 Estimated GFR > 60.0 BUN/Creatinine Ratio 18.7 Glucose 108 H Lactate 0.7 Calcium 8.5 Total Bilirubin 0.2 AST 16 L ALT 7 Alkaline Phosphatase 54 Total Protein 6.8 Albumin 3.5 Globulin 3.3 Albumin/Globulin Ratio 1.1 Lipase 50 Procalcitonin 0.42 U Opiates 300ng/mL cut Ur Oxycodone Screen Urine Methadone Screen Ur Barbiturates Screen U Tricyclic Antidepress Ur Phencyclidine Scrn Ur Amphetamines Screen U Methamphetamines Scrn Ur MDMA Scrn (Ecstasy) U Benzodiazepines Scrn Urine Cocaine Screen U Marijuana (THC) Screen Ethyl Alcohol SARS-CoV-2 (PCR) 06/10/21 06/10/21 06/10/21 18:30 18:30 20:58 WBC RBC Hgb Hct MCV MCH MCHC RDW Plt Count Neut % (Auto) Lymph % (Auto) [place] % (Auto) Eos % (Auto) Baso % (Auto) Neut # (Auto) Lymph # (Auto) [place] # (Auto) Eos # (Auto) Baso # (Auto) Sodium Potassium Chloride Carbon Dioxide BUN Creatinine Estimated GFR BUN/Creatinine Ratio Glucose Lactate Calcium Total Bilirubin AST ALT Alkaline Phosphatase Total Protein Albumin Globulin Albumin/Globulin Ratio Lipase Procalcitonin U Opiates 300ng/mL cut Positive H Ur Oxycodone Screen Negative Urine Methadone Screen Negative Ur Barbiturates Screen Negative U Tricyclic Antidepress Negative Ur Phencyclidine Scrn Negative Ur Amphetamines Screen Positive H U Methamphetamines Scrn Positive H Ur MDMA Scrn (Ecstasy) Negative U Benzodiazepines Scrn Negative Urine Cocaine Screen Negative U Marijuana (THC) Screen Negative Ethyl Alcohol < 10 SARS-CoV-2 (PCR) Negative [facility] Medical History (Updated 06/10/21 @ 23:05 by Dayo Purcell MD) Heroin user Methamphetamine abuse Opioid use disorder Patient denies medical problems Social History marital status: number of children: 2 household members: friend(s) housing: homeless ( stays with friends) Tobacco & Substance Use Smoking Status: Current every day smoker Additional Social History additional social history: 08/08/2020 essentially homeless, currently living in a tent Assessment & Plan Assessment and plan (1) Heroin user: Status: Acute (2) Leg ulcer, left: Status: Acute Plan: recommend elevation of the leg as much as possible. He can be up to walk and go to the bathroom. Daily changes. Daily showers. Antibiotic coverage force unusual organisms and MRSA.( Zosyn and vancomycin good choices) will follow-up periodically to see his progress. Be prepared for his heroin withdrawal. Time Spent With Patient Critical Care time: I spent a total of [] minutes of critical care time on this patient's care today; this time is exclusive of procedural time.
--- NOTE | 2021-06-10 23:18 | PC.NURSE ---
2199: report from JENNI Karimi. MINNA Daniel welcomed patient to floor, completed skin assess and admission. new patient has LLE (kruger) abscess. covered after being changed by Dr Ascencio, who is discussing Plan of care w/ patient. L kruger has non-adherant pad, covered w/ Alevyn. has numerous scabs and lesions, abraised areas, scratches on limbs and face. soft spoken, alert, oriented. reports generalized pain/L kruger pain 2/10. urinal and call light at bedside. able to swallow meds whole. IVF NS at 100/hour infusing to LFA PIV. will be receiving IVF, abx, wound care, med management. report to ONEAL Villa RN.
[2021-06-11] MEDS: PIPERACILLIN/TAZO 4.5 GM in SODIUM CHLORIDE 0.9% 100 ML 200 ML IV (00:12)
[2021-06-11] MEDS: ACETAMINOPHEN 325 MG TABLET 650 MG PO ×2 (00:13→05:24)
[2021-06-11] MEDS: KETOROLAC 30 MG/ML VIAL IV ×2 (00:14→05:24)
[2021-06-11] MEDS: PIPERACILLIN/TAZO 3.375 GM in SODIUM CHLORIDE 0.9% 100 ML 25 ML IV (05:23)
[2021-06-11 05:30] VITALS: BP 144/66; PULSE 85; RESP 16; O2SAT 98
[2021-06-11 06:12] LABS: Add Manual Diff / Slide Review NO; Basophils Absolute Auto 100 /uL (0-100); Basophils Percent Auto 0.7 % (0-2); Eosinophils Absolute Auto 100 /uL (0-450); Eosinophils Percent Auto 1.3 % (2-4); Hematocrit 34.4 % (41-53); Hemoglobin 11.2 g/dL (13.5-17.5); Lymphocytes Absolute Auto 2100 /uL (1100-4500); Lymphocytes Percent Auto 19.1 % (25-40); Mean Corpuscular HGB Conc 32.6 % (30-36); Mean Corpuscular Hemoglobin 26.5 PG (26-34); Mean Corpuscular Volume 81.2 fL (80-100); Monocytes Absolute Auto 800 /uL (0-900); Monocytes Percent Auto 7.8 % (3-14); Neutrophils Absolute Auto 7800 /uL (1500-7000); Neutrophils Percent Auto 71.1 % (50-75); Platelet Count 318 X10^3/uL (150-400); Red Blood Cell Count 4.24 X10^6/uL (4.5-5.9); White Blood Cell Count 10.9 X10^3/uL (4.5-11.0)
[2021-06-11 06:21] LABS: Alanine Aminotransferase 7 IU/L (<50); Albumin 3.4 g/dL (3.5-5.0); Alkaline Phosphatase 53 U/L (38-126); Aspartate Aminotransferase 19 IU/L (17-59); BUN Creatinine Ratio 17.8 (6-22); Bilirubin Total 0.3 mg/dL (0.2-1.3); Bilirubin Unconjugated 0.2 mg/dL (0.0-1.1); Blood Urea Nitrogen 16 mg/dL (9-20); Calcium 8.6 mg/dL (8.4-10.2); Carbon Dioxide 25 mmol/L (22-32); Chloride 109 mmol/L (98-107); Estimated Glomerular Filt Rate > 60.0 mL/min (>60); Globulin 3.3 g/dL (1.7-4.1); Glucose 101 mg/dL (70-100); HEMOLYSIS < 15 (0-50); Potassium 4.2 mmol/L (3.4-5.1); Sodium 139 mmol/L (137-145); Total Protein 6.7 g/dL (6.3-8.2)
[2021-06-11 06:36] LABS: Procalcitonin 0.43 ng/mL (<0.5)
[2021-06-11 08:08] VITALS: O2SAT 97
[2021-06-11 08:19] VITALS: BP 148/95; PULSE 102; RESP 18; TEMP 36.8; O2SAT 97
[2021-06-11] MEDS: PANTOPRAZOLE DR 20 MG TABLET PO (08:54)
[2021-06-11] MEDS: ENOXAPARIN 40 MG/0.4 ML SYRINGE SUBCUT (08:54)
[2021-06-11] MEDS: DOCUSATE 100 MG CAPSULE PO (08:54)
[2021-06-11] MEDS: VANCOMYCIN 1,500 MG/300 ML PIGGYBACK 150 MG IV (09:27)
--- NOTE | 2021-06-11 10:16 | PC.NURSE ---
Day shift: Dressing changed today at approx 1015. Pt tolerated well.
--- NOTE | 2021-06-11 11:13 | PC.NURSE ---
Day shift: Pt left AMA today at approx 1115. He was taken to ED entrance in and he walked away. AMA paperwork signed and he had no questions. He was told about the infection not getting better without hospital treatment and the possibility that he could lose his leg or his life. Pt still left today. Dr Gaitan was informed prior to Pt being taken to ED entrance. Pt has all personal belongings. Pt was also given some new dressings to cover the left leg wound. He was also told that he should keep it very clean. diffusion furnace operator was informed prior to Pt being taken out as well. Pt removed his IV himself. He did not get all of the Vanco IV.
--- NOTE | 2021-06-11 12:29 | PM.DS.1 ---
History of Present Illness History of Present Illness Date Patient Seen: 06/11/21 Time Patient Seen: 08:45 Chief complaint: MRSA Right Lower Leg Narrative: Per HAYDEE Vázquez: Ambrose Jean-Baptiste is a 30-year-old male with a history of ongoing and current IV drug use with heroin and methamphetamine presented today to the emergency department with a wound on his left anterior kruger.? He was seen at [facility] emergency department approximately week and half ago and was discharged on oral antibiotics.? Patient states he was unable to get the antibiotics.? He states that he was trying to get into a friend's truck and scraped his leg against it and cut himself.? He denies injecting himself on his anterior lower legs.? Denies He does not see a medical provider regularly.? He came back in today because he had a subjective fever for the past few days has had nausea, chills, sweats but denies shortness of breath vomiting.? He does state he has been told he has a heart murmur. Tib fib x-ray ordered in the ED indicated ?Pretibial wound without underlying bone changes to suggest osteomyelitis, however radiographs are insensitive in the early phase of osteomyelitis.Patient's temp is 100.5?, blood pressure 138/81, heart rate 98, respiratory rate 25, oxygen saturation 92% on room air, he weighs 72.5 kg.? Has an elevated WBC of 13.3, RBC 4.15, hemoglobin 10.8, hematocrit 33.5, platelet count 322, has a left shift of 11,000, metabolic panel is essentially within normal limits with exception of a mildly elevated glucose at 1:08 a.m., liver enzymes within normal limits, he is positive for opiates amphetamine and methamphetamines in his urine.? Alcohol level is within normal limits, COVID-19 PCR is negative. Discharge Providers Provider Date of admission: 06/10/21 20:49 Discharge Date: 06/11/21 Consults: 06/10/21 21:10 Consult to Physician Routine Comment: Consulting Provider: Dayo Purcell Reason for consultation: left anterior wound infection Has provider been notified: Yes 06/10/21 21:56 Consult to Wound Care Routine Comment: Consulting Provider: [facility] Discharge provider: Dave Gaitan DO Summary Hospital Course Discharge Diagnosis: 1. Left lower extremity open wound and cellulitis, acute, present on admission 2. IV drug use with methamphetamine and heroin, last used today and present on admission Hospital Course: This is a 30-year-old male with a past medical history of IV heroin as well as methamphetamine abuse who was admitted with a left lower extremity ulceration and surrounding cellulitis. He was started on Zosyn and vanco with a surgical consult. Surgery was watching his lower extremity wounds to see if there was further progression after initiation of antibiotics. However shortly after admission, the patient left against medical advice. Patient left quickly according to nursing staff, IV was removed, unable to confirm pharmacy for oral antibiotics as an outpatient. Exam Vital Signs (past 8 hours): - 06/11/21 05:30 06/11/21 08:08 06/11/21 08:19 Temperature 98.2 F Pulse Rate 85 102 H Respiratory Rate 16 18 Blood Pressure 144/66 H 148/95 H Pulse Oximetry 98 97 97 Oxygen Delivery Method Room Air Oxygen Flow Rate 0 Narrative Exam Narrative: Gen: Alert, oriented, 30 y.o. male, dischevelled appearing HEENT: normocephalic, atraumatic, conjunctiva clear, sclera non-icteric, oral mucosa pink and moist, poor dentition w/missing teeth Neck: supple, full ROM, no JVD, trachea is midline Resp: Lungs CTA, non-labored breathing CV: RRR, no murmur or rubs Abd: soft, non-tender, normoactive BTs Skin: multiple centimeter diameter lesions on upper and lower extremities. Weeping, ulcerated open wound on left anterior kruger. Left upper extremity previous abscess drainage, no active induration apparent. Neuro: Alert and oriented X 4 w/no focal deficits. Speech clear and coherent. Extremities: no edema or joint effusions Psyche: normal mood and affect. Objective Labs Result Diagrams: 06/11/21 05:58 06/11/21 05:58 Labs: Laboratory Results - last 24 hr 06/10/21 06/10/21 06/10/21 18:30 18:30 18:30 WBC 13.3 H RBC 4.15 L Hgb 10.8 L Hct 33.5 L MCV 80.8 MCH 25.9 L MCHC 32.1 RDW 15.0 H Plt Count 322 Neut % (Auto) 83.6 H Lymph % (Auto) 8.7 L [place] % (Auto) 5.6 Eos % (Auto) 0.5 L Baso % (Auto) 1.6 Neut # (Auto) 41317 H Lymph # (Auto) 1100 [place] # (Auto) 700 Eos # (Auto) 100 Baso # (Auto) 200 H Sodium 138 Potassium 4.1 Chloride 106 Carbon Dioxide 27 BUN 14 Creatinine 0.75 Estimated GFR > 60.0 BUN/Creatinine Ratio 18.7 Glucose 108 H Lactate 0.7 Calcium 8.5 Total Bilirubin 0.2 Conjugated Bilirubin Unconjugated Bilirubin AST 16 L ALT 7 Alkaline Phosphatase 54 Total Protein 6.8 Albumin 3.5 Globulin 3.3 Albumin/Globulin Ratio 1.1 Lipase 50 Procalcitonin 0.42 U Opiates 300ng/mL cut Ur Oxycodone Screen Urine Methadone Screen Ur Barbiturates Screen U Tricyclic Antidepress Ur Phencyclidine Scrn Ur Amphetamines Screen U Methamphetamines Scrn Ur MDMA Scrn (Ecstasy) U Benzodiazepines Scrn Urine Cocaine Screen U Marijuana (THC) Screen Ethyl Alcohol SARS-CoV-2 (PCR) 06/10/21 06/10/21 06/10/21 18:30 18:30 20:58 WBC RBC Hgb Hct MCV MCH MCHC RDW Plt Count Neut % (Auto) Lymph % (Auto) [place] % (Auto) Eos % (Auto) Baso % (Auto) Neut # (Auto) Lymph # (Auto) [place] # (Auto) Eos # (Auto) Baso # (Auto) Sodium Potassium Chloride Carbon Dioxide BUN Creatinine Estimated GFR BUN/Creatinine Ratio Glucose Lactate Calcium Total Bilirubin Conjugated Bilirubin Unconjugated Bilirubin AST ALT Alkaline Phosphatase Total Protein Albumin Globulin Albumin/Globulin Ratio Lipase Procalcitonin U Opiates 300ng/mL cut Positive H Ur Oxycodone Screen Negative Urine Methadone Screen Negative Ur Barbiturates Screen Negative U Tricyclic Antidepress Negative Ur Phencyclidine Scrn Negative Ur Amphetamines Screen Positive H U Methamphetamines Scrn Positive H Ur MDMA Scrn (Ecstasy) Negative U Benzodiazepines Scrn Negative Urine Cocaine Screen Negative U Marijuana (THC) Screen Negative Ethyl Alcohol < 10 SARS-CoV-2 (PCR) Negative 06/11/21 06/11/21 05:58 05:58 WBC 10.9 RBC 4.24 L Hgb 11.2 L Hct 34.4 L MCV 81.2 MCH 26.5 MCHC 32.6 RDW 15.0 H Plt Count 318 Neut % (Auto) 71.1 Lymph % (Auto) 19.1 L [place] % (Auto) 7.8 Eos % (Auto) 1.3 L Baso % (Auto) 0.7 Neut # (Auto) 7800 H Lymph # (Auto) 2100 [place] # (Auto) 800 Eos # (Auto) 100 Baso # (Auto) 100 Sodium 139 Potassium 4.2 Chloride 109 H Carbon Dioxide 25 BUN 16 Creatinine 0.90 Estimated GFR > 60.0 BUN/Creatinine Ratio 17.8 Glucose 101 H Lactate Calcium 8.6 Total Bilirubin 0.3 Conjugated Bilirubin 0.0 Unconjugated Bilirubin 0.2 AST 19 ALT 7 Alkaline Phosphatase 53 Total Protein 6.7 Albumin 3.4 L Globulin 3.3 Albumin/Globulin Ratio 1.0 Lipase Procalcitonin 0.43 U Opiates 300ng/mL cut Ur Oxycodone Screen Urine Methadone Screen Ur Barbiturates Screen U Tricyclic Antidepress Ur Phencyclidine Scrn Ur Amphetamines Screen U Methamphetamines Scrn Ur MDMA Scrn (Ecstasy) U Benzodiazepines Scrn Urine Cocaine Screen U Marijuana (THC) Screen Ethyl Alcohol SARS-CoV-2 (PCR) [facility] Medical History (Updated 06/10/21 @ 23:05 by Dayo Purcell MD) Heroin user Methamphetamine abuse Opioid use disorder Patient denies medical problems Social History marital status: number of children: 2 household members: friend(s) housing: homeless ( stays with friends) Smoking Status: Current every day smoker additional social history: 08/08/2020 essentially homeless, currently living in a tent Discharge Plan Discharge Plan Patient Disposition: Left Against Medical Advice Discharge orders & Medications Prescriptions: No Action No Known Home Medications RF: 0 Quality VTE Deep Vein Thrombosis/Pulmonary Embolism Present on Admission: No
--- NOTE | 2021-06-11 15:57 | CM.DANOTE ---
DCP/Assessment: Reviewed chart. Attempted to meet with patient early afternoon. RN reports patient left AMA. Patient with h/o IVDU. Per notes, patient was at [facility] last week. P: Left AMA KJS Discharge Planning/Care Management CM Discharge Assessment Start: 06/11/21 15:54 Freq: Status: Discharge Protocol: Document 06/11/21 15:54 KJS (Rec: 06/11/21 15:57 KJS [id number]) Discharge Planning Assessment Assigned Mill Washer MINE Chandler Contact Information Dariel Conklin (Family/Other) # [phone] Advance Directives? No History Provided By Medical Record Prior Living Arrangements Homeless Household Members friend(s) Independent with ADL's Yes: Per nursing and EMR patient independent in ADL's. Is patient alert and oriented? Yes Discharge Plan Left AMA Review Status In Process Next Review Type Continued Stay Review
== END 2021-06-11 11:18 | disposition left against medical advice (07) | DRG 603 ==
LOC: ED 20:33 → AC 20:49
PROVIDERS: Emergency Medicine; Admitting Provider Nurse Practitioner Family; Emergency Provider Emergency Medicine; Referring Provider Emergency Medicine; Visit Provider Nurse Practitioner Family
DX: L03.116 Cellulitis of left lower limb (principal); I96 Gangrene, not elsewhere classified; L97.822 Non-pressure chronic ulcer of other part of left lower leg with fat layer exposed; F15.90 Other stimulant use, unspecified, uncomplicated; F11.90 Opioid use, unspecified, uncomplicated; F17.200 Nicotine dependence, unspecified, uncomplicated; Z59.0 Homelessness; Z20.822 Contact with and (suspected) exposure to COVID-19; Z53.29 Procedure and treatment not carried out because of patient's decision for other reasons
CPT/HCPCS: 36415; 71045; 73590; 80048; 80053; 80076; 80305; 80320; 81003; 83605; 83690; 84145; 85025; 87040; 87070; 87075; 87077; 87147; 87186; 87205; 87635; 93005; 96361; 96365; 96366; 99232; 99284; 99406; C9803; J1650; J1885; J2543

== ENCOUNTER 2021-06-19 23:12 | Emergency (ER) | payer MEDICAID, SELFPAY ==
[2021-06-10 21:25] VITALS: BMI 23.5
[2021-06-19 23:19] VITALS: BP 126/71; PULSE 91; RESP 18; TEMP 37.1; O2SAT 95
--- NOTE | 2021-06-20 01:02 | PC.NURSE ---
Pt reports that he has discomfort 03/15 to LLE r/t MRSA infection, was admitted and left AMA on 06/11/21.
--- NOTE | 2021-06-20 03:15 | ED.SKABFB ---
HPI - Skin/Abscess/Foreign Bdy General Chief complaint: Skin/Abscess/Foreign Body Stated complaint: states has mrsa has gotten worse Time Seen by Provider: 06/20/21 00:43 Source: patient Mode of arrival: Ambulatory History of Present Illness HPI narrative: 30-year-old gentleman with a history of recurrent left anterior kruger abscess and cellulitis related to his chronic IV drug use. He has been seen at both [facility] and [facility] and has left against medical advice on multiple times. Most recently he was admitted to [facility] and left against medical advice on June 11. He did not receive of prescription for antibiotics on discharge. Cultures from I and D at that time show a methicillin sensitive Staph and pansensitive strep. Comes in today requesting help in getting the wound to heal completely. Related Data Previous Rx's Medication Instructions Recorded sulfamethoxazole 800 1 tab PO BID #20 tab 06/20/21 mg-trimethoprim 160 mg tablet (Bactrim DS) Allergies Allergy/AdvReac Type Severity Reaction Status Date / Time No Known Drug Allergies Allergy Verified 09/15/20 20:40 Review of Systems Review of Systems Narrative: Pertinent positive and negative findings as per HPI Remainder of review of systems is otherwise unremarkable for Constitutional: Fevers, chills, weakness ENT: No sore throat, neck pain, ear pain CV: Chest pain, palpitations, Respiratory: Cough, wheeze, dyspnea GI: Nausea, vomiting, diarrhea, : Dysuria, hematuria, Patient History Medical History Heroin user Methamphetamine abuse Opioid use disorder Patient denies medical problems Social History marital status: number of children: 2 household members: friend(s) housing: homeless ( stays with friends) Smoking Status: Current every day smoker additional social history: 08/08/2020 essentially homeless, currently living in a tent Smoking Status: Current every day smoker alcohol intake frequency: holidays/special occasions only Substance Use Type: heroin, methamphetamine and other Exam Narrative Exam Narrative: General: Alert appropriate in no acute distress Respiratory: Able to speak in full sentences, no obvious respiratory distress Skin: Multiple scars from ?methamphetamine picking? track esquivel and minor small infections from IV drug use Neurologic: Grossly intact no obvious asymmetries or abnormalities Psych: Sleepy, distracted appears intoxicated but is cooperative Extremity: Left anterior kruger and wound there is an approximately 2 cm diameter shallow ulcer and then a 5 x 4 cm ulcer just distal to that. There is minimal erythema and minimal drainage. Wounds do appear to be healing. Initial Vital Signs Initial Vital Signs: Vital Signs Temperature 98.7 F 06/19/21 23:19 Pulse Rate 91 H 06/19/21 23:19 Respiratory Rate 18 06/19/21 23:19 Blood Pressure 126/71 06/19/21 23:19 Pulse Oximetry 95 06/19/21 23:19 Course Orders Ordered: Discontinued Medications Bacitracin (Bacitracin Oint 0.9 Gm Pckt) 5 applic TOP NOW ONE Stop: 06/20/21 03:24 Last Admin: 06/20/21 03:29 Dose: 5 applic Documented by: TRUDY Vital Signs Vital signs: Vital Signs - 8 hr 06/19/21 23:19 06/20/21 03:42 Temperature 98.7 F Pulse Rate 91 H 70 Respiratory Rate 18 20 Blood Pressure 126/71 125/72 Pulse Oximetry 95 100 MDM - Skin/Abscess/Foreign Bdy MDM Narrative Medical decision making narrative: 30-year-old gentleman with left anterior kruger wounds after I&D. Most recent culture from them indicate a methicillin sensitive Staph as well as strep essentially pansensitive. He is discharged home with 10 days of Bactrim. In the emergency department the wound is cleaned bacitracin and Telfa dressing applied. No evidence of sepsis. No evidence of worsening abscess or cellulitis. He is safe for home discharge Discharge Plan Departure Patient Disposition: Home Clinical Impression: Cellulitis and abscess of left leg Instructions: DI for Wound Infection Activity Restrictions/Additional Instructions: Thank you for coming back today It is important that you complete the course of antibiotics to ensure that the wound on your leg heals. It actually looks like it is doing fairly well. You do need to keep washing it daily, applying antibiotic ointment and a dressing. I have given you a prescription for Bactrim. Based on the cultures with your recent hospital stay the Bactrim should be an excellent choice to help this clear up. Getting into treatment and getting away from both the methamphetamine and heroin will also help the wound heal more efficiently Prescriptions: New sulfamethoxazole-trimethoprim [Bactrim DS] 800-160 mg tablet 1 tab PO BID Qty: 20 RF: 0
[2021-06-20] MEDS: BACITRACIN OINT 0.9 GM PCKT 5 APPLIC TOP (03:29)
[2021-06-20 03:42] VITALS: BP 125/72; PULSE 70; RESP 20; O2SAT 100
== END 2021-06-20 03:44 | disposition home or self-care (01) ==
PROVIDERS: Emergency Provider Emergency Medicine
DX: L03.116 Cellulitis of left lower limb (principal); L02.416 Cutaneous abscess of left lower limb
CPT/HCPCS: 99282

== ENCOUNTER 2021-08-05 22:47 | Emergency (ER) | payer MEDICAID, SELFPAY ==
[2021-06-10 21:25] VITALS: BMI 23.5
[2021-08-05 22:57] VITALS: BP 208/109; PULSE 109; RESP 22; TEMP 37.2; O2SAT 100
[2021-08-06] VITALS (30 sets, daily range): BP systolic 137–166; BP diastolic 60–95; PULSE 111–153; RESP 11–29; TEMP 37.2; O2SAT 93–99
--- NOTE | 2021-08-06 01:31 | ED.SKABFB ---
HPI - Skin/Abscess/Foreign Bdy General Chief complaint: Skin/Abscess/Foreign Body Stated complaint: Really bad infection on left leg, worse-revisit Time Seen by Provider: 08/06/21 00:11 Source: patient Mode of arrival: Ambulatory History of Present Illness HPI narrative: 30-year-old gentleman with opiate and heroin use disorders getting progressively worse. He has multiple abscesses and there is a large 1 on his left anterior kruger that is getting worse. He has been in multiple times frequently is not able to purchase the prescribed antibiotics but somehow seems to be able to purchase antibiotics from his friends as well as additional meth and heroin. He comes in today for further treatment and ?I just want it fixed? of his left anterior kruger wound. I have seen him 3 times over the last year for similar complaints and each time he is thinner, more ragged appearing with increased ?meth picking? lesions. He has more abscessed areas and the previous ones do not seem to heal. Currently the wound on his kruger is approximately 16 cm x 14 cm. Previously when we have tried inpatient treatment he leaves prior to completing treatment. At this time I do not think he is physically or emotionally capable of remaining in the hospital given the degree of his addiction disorder. He continues to iterate that he can not begin treating or addressing his addiction issues until his infectious disease issues are improving and I keep trying to explain to him that the addiction issues are causing the infectious disease issues. Under review of systems he complains of significant pain around the left calf and left anterior kruger wound, he does not note fevers, chills, vomiting, diarrhea, weight loss, skin changes all of which are clearly present and I suspect not being fully recognized because of his over use disorders. Related Data Previous Rx's Medication Instructions Recorded sulfamethoxazole 800 1 tab PO BID #20 tab 06/20/21 mg-trimethoprim 160 mg tablet (Bactrim DS) Allergies Allergy/AdvReac Type Severity Reaction Status Date / Time ketamine AdvReac tonic Verified 08/06/21 03:45 clonic movement Review of Systems Review of Systems Narrative: Remainder of complete review of systems is otherwise unremarkable except for that included in the HPI. Patient History Medical History Heroin user Methamphetamine abuse Opioid use disorder Patient denies medical problems Social History marital status: number of children: 2 household members: friend(s) housing: homeless ( stays with friends) Smoking Status: Current every day smoker additional social history: 08/08/2020 essentially homeless, currently living in a tent Smoking Status: Current every day smoker alcohol intake frequency: holidays/special occasions only Substance Use Type: heroin, methamphetamine and other Exam Narrative Exam Narrative: General: Chronically ill-appearing in mild distress. Disheveled and increasingly emaciated appearing. HEENT: Moist mucous membranes, normal sclera with reactive pupils, Respiratory: Lungs are clear to auscultation, no wheezing no rales no rhonchi. Full and symmetrical air movement Cardiac: Tachycardic but otherwise regular, no murmurs on careful auscultation Abdomen: Soft, nontender, good bowel tones, no flank pain Skin: Pale, multiple scars, track esquivel, superficial abscesses in bruising. Neurologic: Moving all extremities Extremities: On his right forearm he has a 3 x 3 cm abscess, there are multiple track esquivel, multiple skin ?picking? wounds with various degrees of developing cellulitis. The left anterior kruger has a 14 x 16 cm wound with purulence debris, necrotic tissue at the edges and some granulation tissue appreciated centrally. The calf itself is swollen without obvious abscess. Erythema extending out from the wound is concerning for worsening cellulitis. Psych: Poor overall insight, dramatic pain affect of behavior Initial Vital Signs Initial Vital Signs: Vital Signs Temperature 98.9 F 08/05/21 22:57 Pulse Rate 109 H 08/05/21 22:57 Respiratory Rate 22 08/05/21 22:57 Blood Pressure 208/109 H 08/05/21 22:57 Pulse Oximetry 100 08/05/21 22:57 Procedures Abscess I/D Right forearm: Time of procedure: 05:01 Site: upper extremity Side (if applicable): right Sedation/analgesia: other (Ketamine sedation) Technique: incised with #11 blade Amount of fluid expressed (mL): 5 Packing used?: none Procedural Sedation Time of procedure: 05:04 Time out performed: Yes Indication: incision and drainage of abscess (Debridement of large anterior kruger wound) ASA Class: I Mallampati Airway Classification: Class I Time of Last PO Intake: 18:00 Preparation: vehicle monitor technician applied, pulse oximeter and suction/airway equipment at bedside Ketamine: IM Intraservice time/total sedation time (min): 24 ED Sedation Level: Moderate (Concious) Complications: significant emergence reaction (As well as a dramatic tonic clonic movements throughout the sedation time) [facility] [place] Name of Procedure: Debridement left anterior kruger wound Location: Left anterior kruger Technique/Description of procedure performed: After appropriate conscious sedation obtained with ketamine, the edges of the wound and necrotic tissue are sharply debrided with scissors. Wound culture is obtained. Wound itself is irrigated and cleaned to try and remove as much of the fibrin tissue and eschar as possible. Bacitracin was generously applied to the wound with nonstick gauze and Kerlix. Additional Comments: Touching the wound all is extraordinarily painful which necessitated the ketamine sedation. Unfortunately he had significant tonic clonic movement as a consequence of ketamine sedation which was treated with IM Versed. He had significant immersion reaction and clearly had a ?bad trip? overall with ketamine. Would recommend not using this for sedation for him in the future. Course Orders Ordered: ED Orders 08/06/21 03:00 Wound Culture and Gram Stain Stat Discontinued Medications Amoxicillin/Clavulanate Potassium (Amox/Clav 400 Mg/5 Ml Prepack) 1 bottle [facility] [place] Stop: 08/06/21 01:44 Bacitracin (Bacitracin Oint 0.9 Gm Pckt) 10 applic TOP NOW ONE Stop: 08/06/21 01:44 Last Admin: 08/06/21 02:59 Dose: 10 applic Documented by: PRANEETH Cefazolin Sodium (Cephalexin 250 Mg Prepack) 1 bottle [facility] [place] Stop: 08/06/21 01:58 Last Admin: 08/06/21 03:15 Dose: 2 tab Documented by: PRANEETH Ceftriaxone Sodium (Ceftriaxone 2,000 Mg Vial) 2,000 mg IM NOW ONE Stop: 08/06/21 01:44 Last Admin: 08/06/21 02:59 Dose: 2,000 mg Documented by: PRANEETH Diphenhydramine HCl (Diphenhydramine 50 Mg/Ml Vial) 50 mg IM NOW ONE Stop: 08/06/21 03:27 Ketamine HCl (Ketamine 500 Mg/5 Ml Inj) 500 mg IM NOW ONE Stop: 08/06/21 01:44 Last Admin: 08/06/21 02:41 Dose: 500 mg Documented by: PRANEETH Ketorolac Tromethamine (Ketorolac 30 Mg/Ml Vial) 30 mg IM NOW ONE Stop: 08/06/21 03:05 Last Admin: 08/06/21 03:16 Dose: 30 mg Documented by: PRANEETH Midazolam HCl (Midazolam 5 Mg/Ml Vial) 2 mg IM NOW ONE Stop: 08/06/21 02:54 Last Admin: 08/06/21 03:00 Dose: Not Given Documented by: PRANEETH Trimethoprim/Sulfamethoxazole (Trimeth/Sulfa 160/800 Prepack) 1 bottle [facility] ONE Stop: 08/06/21 01:44 Vital Signs Vital signs: Vital Signs - 8 hr 08/05/21 22:57 08/06/21 02:45 08/06/21 02:50 Temperature 98.9 F Pulse Rate 109 H 111 H 138 H Respiratory Rate 22 29 H Blood Pressure 208/109 H 163/85 H Pulse Oximetry 100 99 95 08/06/21 02:56 08/06/21 03:00 08/06/21 03:01 Temperature Pulse Rate 153 H 152 H 151 H Respiratory Rate 22 17 27 H Blood Pressure 154/68 H 158/68 H Pulse Oximetry 08/06/21 03:06 08/06/21 03:10 08/06/21 03:15 Temperature Pulse Rate 138 H 136 H 133 H Respiratory Rate 28 H Blood Pressure 164/83 H 137/71 139/67 Pulse Oximetry 94 94 08/06/21 03:20 08/06/21 03:26 08/06/21 03:30 Temperature Pulse Rate 132 H Respiratory Rate 15 Blood Pressure 153/70 H 158/70 H 157/60 H Pulse Oximetry 93 08/06/21 03:35 08/06/21 03:40 08/06/21 03:46 Temperature Pulse Rate Respiratory Rate Blood Pressure 153/67 H 163/63 H 151/85 H Pulse Oximetry 08/06/21 03:50 08/06/21 03:55 08/06/21 04:00 Temperature Pulse Rate Respiratory Rate Blood Pressure 153/82 H 155/95 H 148/71 H Pulse Oximetry 08/06/21 04:05 08/06/21 04:11 08/06/21 04:15 Temperature Pulse Rate 137 H 135 H 135 H Respiratory Rate 11 L 18 22 Blood Pressure 159/90 H 162/77 H 160/75 H Pulse Oximetry 93 93 95 MDM - Skin/Abscess/Foreign Bdy MDM Narrative Medical decision making narrative: 30-year-old gentleman with severe opiate and methamphetamine use disorders. Multiple abscesses superficial skin lesions and large anterior kruger wound that is simply increasing in size as he is unable to care for it and not able to adequately nourish is body in the setting of his addiction disorders. In the past we have talked about hospital admission. Certainly IV antibiotics would be most appropriate however he is not willing/able to stay in the hospital. Treatment with best amount of harm reduction and is still willing to be followed by patient was negotiated. Today he was sedated to do the debridement in cleaning/dressing of the wound was required. While he was sedated I took the opportunity to do a simple I and D of a 3 cm simple abscess on his right forearm as well. Wound cultures of the lower extremity wound were obtained. Dressings were applied and he was given 2 g of IM ceftriaxone today. Will ask him to return tomorrow night and will do a dressing change and an additional 2 g of ceftriaxone with the same plan for the following night as well. Hopefully wound cultures will have returned by the 3rd night to help focus oral options for antibiotics. Will encourage him to try to find the money required to pay for the antibiotic prescriptions. Again long discussion with both he and his girlfriend regarding the importance of treatment for his addictions and that in the absence of treatment he is going to continue to decline with the eventual and point being , and at this rate coming sooner rather than later. I do not believe that the patient self is cognitively able to process this information however his girlfriend certainly is and was quite helpful in calming him and reassuring me that she will help him follow-up with treatments as recommended. Will anticipate seeing this gentleman tomorrow night for dressing change and antibiotic shots. Discharge Plan Departure Patient Disposition: Home Clinical Impression: Cellulitis and abscess of left leg, Abscess of forearm, right, Severe heroin use disorder, Methamphetamine use disorder, severe, Excessive weight loss Malnutrition Qualifiers: Malnutrition type: unspecified type Qualified Code(s): E46 - Unspecified protein-calorie malnutrition Instructions: DI for Skin Abscess, DI for Wound Infection Activity Restrictions/Additional Instructions: Thank you for coming in today Due to the pain associated with the infected wound on your left leg, we used ketamine sedation to debride the wound. You had an adverse response to ketamine. The very bad dream that you experienced is called an ?emergence reaction?. We do see this with ketamine occasionally. Because of the increased muscular movement and the emergence reaction, I would suggest that you not use ketamine in the future. Please note, this is not an allergy to the medication, it is just 1 of the uncommon side effects that can be associated with it. Despite the bad reaction, I was able to thoroughly debride and clean your wound. We also gave you a large dose of antibiotics as a shot. This antibiotic will last for 24 hours. You need to come back tomorrow night. We will simply change the dressing (nothing as significant as we did today) and you need another antibiotic shot. This will need to be repeated the next night as well. After the 3rd night, we will talk about which antibiotics will be most appropriate and I will give you prescriptions at that time. Please note, each time I have seen you over the last year you are deeper and deeper into your addiction and you are dying from your addiction. Your wounds are going to have a very difficult time healing because you are not eating enough for your body to be healthy. If you want to talk about treatment options I can help. If you do not want to talk about treatment options, I will still always help with the abscesses and antibiotics. Please come back tomorrow night Prescriptions: No Action sulfamethoxazole-trimethoprim [Bactrim DS] 800-160 mg tablet 1 tab PO BID Qty: 20 RF: 0
[2021-08-06] MEDS: KETAMINE 500 MG/5 ML INJ IM (02:41)
[2021-08-06] MEDS: MIDAZOLAM 2 MG/2 ML VIAL (02:55)
[2021-08-06] MEDS: BACITRACIN OINT 0.9 GM PCKT 10 APPLIC TOP (02:59)
[2021-08-06] MEDS: cefTRIAXone 2,000 MG VIAL 2000 MG IM (02:59)
[2021-08-06] MEDS: LIDOCAINE 1% (PF) 2 ML (02:59)
[2021-08-06] MEDS: cephALEXin 250 MG PREPACK 1 BOTTLE MISC (03:15)
[2021-08-06] MEDS: KETOROLAC 30 MG/ML VIAL IM (03:16)
--- NOTE | 2021-08-06 03:32 | PC.NURSE ---
Pt is now lucid, responding apropriately to girlfriend who remains at bedside, providing support.
== END 2021-08-06 06:58 | disposition home or self-care (01) ==
PROVIDERS: Emergency Provider Emergency Medicine
DX: L03.116 Cellulitis of left lower limb (principal); L02.416 Cutaneous abscess of left lower limb; L02.413 Cutaneous abscess of right upper limb; E46 Unspecified protein-calorie malnutrition; R63.4 Abnormal weight loss; F11.20 Opioid dependence, uncomplicated; F15.20 Other stimulant dependence, uncomplicated
CPT/HCPCS: 10060; 11042; 87070; 87075; 87077; 87147; 87186; 87205; 96372; 99283; 99284; J0696; J1885; J2250

== ENCOUNTER 2021-08-06 20:22 | Emergency (ER) | payer MEDICAID, SELFPAY ==
[2021-06-10 21:25] VITALS: BMI 23.5
[2021-08-06 20:30] VITALS: BP 150/89; PULSE 110; RESP 24; TEMP 36.9; O2SAT 100
--- NOTE | 2021-08-06 20:45 | ED.RECABL ---
HPI - Recheck/Abnormal Lab/Rx General Chief Complaint: Recheck/Abnormal Lab/Rx Stated Complaint: LEFT LOWER LEG MRSA Time Seen by Provider: 08/06/21 20:43 Source: patient Mode of arrival: Ambulatory History of Present Illness HPI narrative: 30-year-old gentleman seen last night with left lower extremity wound and plan for least arm and best benefit of ER visits 3 days in a row with IM antibiotics. Wound was redressed yesterday today is growing Staph aureus methicillin sensitive and sensitive to everything except erythromycin, also has heavy growth of group a strep. Related Data Previous Rx's Medication Instructions Recorded sulfamethoxazole 800 1 tab PO BID #20 tab 06/20/21 mg-trimethoprim 160 mg tablet (Bactrim DS) Allergies Allergy/AdvReac Type Severity Reaction Status Date / Time ketamine AdvReac tonic Verified 08/06/21 03:45 clonic movement Review of Systems Review of Systems Narrative: No fever. Continued significant pain in the left leg related to the wound Patient History Medical History Heroin user Methamphetamine abuse Opioid use disorder Patient denies medical problems Social History marital status: number of children: 2 household members: friend(s) housing: homeless ( stays with friends) Smoking Status: Current every day smoker additional social history: 08/08/2020 essentially homeless, currently living in a tent Smoking Status: Current every day smoker alcohol intake frequency: holidays/special occasions only Substance Use Type: heroin, methamphetamine and other Exam Narrative Exam Narrative: General: Appears chronically ill but in no acute distress Respiratory: Able to speak in full sentences, no obvious respiratory distress Skin: No obvious rashes, warm and dry Neurologic: Grossly intact no obvious asymmetries or abnormalities Extremity: Wound over the anterior kruger is gently cleaned, bacitracin reapplied dressing reapplied. Overall erythema of the calf is slightly decreased and there is no new spread to the wound. Initial Vital Signs Initial Vital Signs: Vital Signs Temperature 98.5 F 08/06/21 20:30 Pulse Rate 110 H 08/06/21 20:30 Respiratory Rate 24 08/06/21 20:30 Blood Pressure 150/89 H 08/06/21 20:30 Pulse Oximetry 100 08/06/21 20:30 Course Orders Ordered: Discontinued Medications Bacitracin (Bacitracin Oint 0.9 Gm Pckt) 10 applic TOP NOW ONE Stop: 08/06/21 20:45 Last Admin: 08/06/21 21:03 Dose: 10 applic Documented by: PRANEETH Cefazolin Sodium (Cephalexin 250 Mg Prepack) 1 bottle [facility] ONE Stop: 08/06/21 20:47 Last Admin: 08/06/21 21:31 Dose: 2 tab Documented by: PRANEETH Ceftriaxone Sodium (Ceftriaxone 2,000 Mg Vial) 2,000 mg IM NOW ONE Stop: 08/06/21 20:45 Last Admin: 08/06/21 21:02 Dose: 2,000 mg Documented by: PRANEETH Vital Signs Vital signs: Vital Signs - 8 hr 08/06/21 20:30 Temperature 98.5 F Pulse Rate 110 H Respiratory Rate 24 Blood Pressure 150/89 H Pulse Oximetry 100 MDM - Recheck/Abnormal Lab/Rx MDM Narrative Medical decision making narrative: 30-year-old gentleman with methamphetamine and heroin addiction issues who cannot/will not stay in the hospital so course of care is directed at the least amount of harm. He returns on day 2 for wound care and 2nd dose of 2 g of IM ceftriaxone. Does appear to be slightly improved and there are no signs of developing sepsis or worsening cellulitis. Will do so again tomorrow. Safe from discharge Discharge Plan Departure Patient Disposition: Home Clinical Impression: Cellulitis and abscess of left leg Activity Restrictions/Additional Instructions: The dressing was changed today. Your wound is actually looking quite good. Your given an additional dose of IM antibiotics The culture that we did yesterday shows that you have both staph and strep. The initial cultures suggest that you are on the right antibiotics today. I will see tomorrow night. Prescriptions: No Action sulfamethoxazole-trimethoprim [Bactrim DS] 800-160 mg tablet 1 tab PO BID Qty: 20 RF: 0
[2021-08-06] MEDS: cefTRIAXone 2,000 MG VIAL 2000 MG IM (21:02)
[2021-08-06] MEDS: LIDOCAINE 2% INJ MDV 20 ML (21:02)
[2021-08-06] MEDS: BACITRACIN OINT 0.9 GM PCKT 10 APPLIC TOP (21:03)
[2021-08-06] MEDS: cephALEXin 250 MG PREPACK 1 BOTTLE MISC (21:31)
--- NOTE | 2021-08-06 21:43 | PC.NURSE ---
Left leg wound draining copious yellow exudate. Wound irrigated with saline, patted dry with gauze. Skin distal to wound is now pink/macerated due to wet dressing that slid down leg. Pt and S.O educated to keep wound clean and dry as best they can. Antibiotic ointment applied and wound dressed with nonadherent pad and dressing. Pt tolerated well
== END 2021-08-06 21:40 | disposition home or self-care (01) ==
PROVIDERS: Emergency Provider Emergency Medicine
DX: L03.116 Cellulitis of left lower limb (principal); L02.416 Cutaneous abscess of left lower limb; F11.20 Opioid dependence, uncomplicated; F15.10 Other stimulant abuse, uncomplicated
CPT/HCPCS: 96372; 99283; J0696

== ENCOUNTER 2021-09-16 17:24 | Emergency (ER) | payer MEDICAID, SELFPAY ==
[2021-06-10 21:25] VITALS: BMI 23.5
[2021-09-16 17:40] VITALS: BP 176/83; PULSE 109; RESP 20; TEMP 37.3; O2SAT 100; BMI 24.4
== END 2021-09-16 21:57 | disposition left against medical advice (07) ==
PROVIDERS: Emergency Provider Emergency Medicine; PCP Pediatrics
DX: Z53.21 Procedure and treatment not carried out due to patient leaving prior to being seen by health care provider (principal)
CPT/HCPCS: 99281

== ENCOUNTER 2021-09-19 09:12 | Emergency (ER) | payer MEDICAID, SELFPAY ==
[2021-06-10 21:25] VITALS: BMI 23.5
[2021-09-19 09:15] VITALS: BP 135/94; PULSE 86; RESP 14; TEMP 36.8; O2SAT 95; BMI 23.7
--- NOTE | 2021-09-19 09:32 | ED.RECABL ---
HPI - Recheck/Abnormal Lab/Rx General Chief Complaint: Recheck/Abnormal Lab/Rx Stated Complaint: Fit for long term,wound infection on legs Time Seen by Provider: 09/19/21 09:24 Source: police Mode of arrival: Ambulatory History of Present Illness HPI narrative: Patient is a 30-year-old male was brought in by police for a fit for long term an evaluation of a wound to his left leg. Patient has been seen multiple times in the past for leg infections. Has had multiple cultures. Has been on antibiotics to include clindamycin and Bactrim. Prior cultures show staph and strep. Patient checked into the emergency department a couple days ago but left without being seen. He does have a history of IV drug abuse. He is here with please for a fit for long term. Patient is not on any antibiotics. Does have a bandage on his left lower extremity. Related Data Previous Rx's Medication Instructions Recorded sulfamethoxazole 800 1 tab PO BID #20 tab 06/20/21 mg-trimethoprim 160 mg tablet (Bactrim DS) clindamycin HCl 300 mg capsule 300 mg PO BID 10 Days #30 cap 08/07/21 clindamycin HCl 300 mg capsule 300 mg PO TID 10 Days #30 cap 08/07/21 sulfamethoxazole 800 1 tab PO BID 10 Days #20 tab 08/07/21 mg-trimethoprim 160 mg tablet (Bactrim DS) sulfamethoxazole 800 1 tab PO BID 10 Days #20 tab 08/07/21 mg-trimethoprim 160 mg tablet (Bactrim DS) sulfamethoxazole 800 1 tab PO BID 7 Days #14 tab 09/19/21 mg-trimethoprim 160 mg tablet (Bactrim DS) Allergies Allergy/AdvReac Type Severity Reaction Status Date / Time ketamine AdvReac tonic Verified 09/19/21 09:19 clonic movement Review of Systems Constitutional Constitutional: Reports system reviewed and no additional complaints, except as documented Musculoskeletal Comments: Discomfort left lower extremity Integumentary/Breasts Comments: Infection left lower extremity Hematologic/Lymphatic On Anticoagulants: No Patient History Medical History Heroin user Methamphetamine abuse Opioid use disorder Patient denies medical problems Social History marital status: number of children: 2 household members: friend(s) housing: homeless ( stays with friends) Smoking Status: Current every day smoker additional social history: 08/08/2020 essentially homeless, currently living in a tent Smoking Status: Current every day smoker alcohol intake frequency: holidays/special occasions only Substance Use Type: heroin, methamphetamine and other Exam Initial Vital Signs Initial Vital Signs: Vital Signs Temperature 98.3 F 09/19/21 09:15 Pulse Rate 86 09/19/21 09:15 Respiratory Rate 14 09/19/21 09:15 Blood Pressure 135/94 H 09/19/21 09:15 Pulse Oximetry 95 09/19/21 09:15 HENNJ Head: normal to inspection and normocephalic Resp Effort & Inspection: normal respiratory effort Cardio Rate: regular rate Pulses: dorsalis pedis present on the left Skin Other: Patient has multiple lesions throughout his body in various stages of healing. Consistent with picking of his skin most likely from his methamphetamine abuse. He is currently picking at his left upper extremity and left shoulder. He has a large area of granulation tissue on the left anterior lateral aspect of his lower extremity. About the size of a hand. There is minimal surrounding erythema. Neuro General: patient alert and patient awake Extrem Other: Left ankle and left knee unremarkable. Psych Appearance: disheveled Course Orders Ordered: ED Orders 09/19/21 09:37 Wound Culture and Gram Stain Stat Vital Signs Vital signs: Vital Signs - 8 hr 09/19/21 09:15 Temperature 98.3 F Pulse Rate 86 Respiratory Rate 14 Blood Pressure 135/94 H Pulse Oximetry 95 MDM - Recheck/Abnormal Lab/Rx MDM Narrative Medical decision making narrative: Patient is afebrile, not tachycardic. Not hypotensive. He has lesions throughout his body most likely consistent with picking that comes with the methamphetamine abuse. He has a large area of granulation tissue on his left lower extremity. A culture was obtained today. Review of prior culture show that it was sensitive to Bactrim. There is minimal surrounding erythema. Patient does not have sepsis. Is neurovascularly intact. Patient does require antibiotics and dressing changes. He would benefit from evaluation by wound care. Patient does not need admitted to the hospital for these wounds. Patient states that he does need admitted because he wants it ?taking care of ?. He also states that he needs to be transferred to [facility]. Patient does not need admitted to the hospital. Does not need transferred. Patient is fit for confinement. He referral was placed for wound care when he is released from long term. The police were given instructions to give to the long term as far as wound care. The patient was also given these instructions. They were also given a prescription for antibiotics. Discharge Plan Departure Patient Disposition: Home Clinical Impression: Cellulitis, Leg wound, left, Medical clearance for incarceration Instructions: Cellulitis Activity Restrictions/Additional Instructions: You are fit for confinement. You do need to start on antibiotics in your provided a prescription for this. The wound on your leg does need to have daily dressing changes. You can shower like normal. You can use soap and water. A referral was placed for wound care. When you are able you can contact [phone]. They can see you as an outpatient for further evaluation. Prescriptions: New sulfamethoxazole-trimethoprim [Bactrim DS] 800-160 mg tablet 1 tab PO BID 7 Days Qty: 14 0RF No Action sulfamethoxazole-trimethoprim [Bactrim DS] 800-160 mg tablet 1 tab PO BID Qty: 20 0RF clindamycin HCl 300 mg capsule 300 mg PO BID 10 Days Qty: 30 3RF sulfamethoxazole-trimethoprim [Bactrim DS] 800-160 mg tablet 1 tab PO BID 10 Days Qty: 20 3RF clindamycin HCl 300 mg capsule 300 mg PO TID 10 Days Qty: 30 3RF sulfamethoxazole-trimethoprim [Bactrim DS] 800-160 mg tablet 1 tab PO BID 10 Days Qty: 20 3RF Referrals: Gamal Royal MD [Primary Care Provider] -
== END 2021-09-19 09:52 | disposition home or self-care (01) ==
PROVIDERS: Emergency Provider Emergency Medicine; PCP Pediatrics
DX: Z02.89 Encounter for other administrative examinations (principal); L03.116 Cellulitis of left lower limb
CPT/HCPCS: 87070; 87077; 87147; 87186; 87205; 99281; 99282

== ENCOUNTER 2021-11-07 11:22 | Emergency (ER) | payer MEDICAID, SELFPAY ==
[2021-06-10 21:25] VITALS: BMI 23.5
[2021-11-07 11:25] VITALS: BP 134/73; PULSE 78; RESP 17; TEMP 36.8; O2SAT 100
--- NOTE | 2021-11-07 12:03 | ED.SKABFB ---
HPI - Skin/Abscess/Foreign Bdy General Chief complaint: Skin/Abscess/Foreign Body Stated complaint: Fit for Intermediate Time Seen by Provider: 11/07/21 11:30 Source: police Mode of arrival: Ambulatory Limitations: no limitations History of Present Illness HPI narrative: Patient is a 31-year-old male. Was brought in by police for a fit for custodial. Patient is a known IV drug abuser. I evaluated him in September last year for very similar circumstances. At that time he had a large wound on the front of his left lower extremity. He was started on a course of antibiotics. He was found fit for custodial. He completed the course of antibiotics. A referral was placed for wound care however after being released from custodial he never was seen by wound care. Has had little if any intervention in these wounds since then. He states that the antibiotics did not improve his symptoms Related Data Home Medications Medication Instructions Recorded Confirmed No Known Home Medications 11/07/21 11/07/21 Allergies Allergy/AdvReac Type Severity Reaction Status Date / Time ketamine AdvReac tonic Verified 11/07/21 11:33 clonic movement Review of Systems Constitutional Constitutional: Denies fever(s) Musculoskeletal Musculoskeletal: Reports system reviewed and no additional complaints, except as documented and Reports as per HPI Integumentary/Breasts Skin/Breast: Reports system reviewed and no additional complaints, except as documented and Reports as per HPI Hematologic/Lymphatic On Anticoagulants: No Patient History Medical History Heroin user Methamphetamine abuse Opioid use disorder Patient denies medical problems Social History marital status: number of children: 2 household members: friend(s) housing: homeless ( stays with friends) Smoking Status: Current every day smoker additional social history: 08/08/2020 essentially homeless, currently living in a tent Smoking Status: Current every day smoker alcohol intake frequency: holidays/special occasions only Substance Use Type: heroin, methamphetamine and other Exam Initial Vital Signs Initial Vital Signs: Vital Signs Temperature 98.2 F 11/07/21 11:25 Pulse Rate 78 11/07/21 11:25 Respiratory Rate 17 11/07/21 11:25 Blood Pressure 134/73 11/07/21 11:25 Pulse Oximetry 100 02/02/22 11:25 Const General: cooperative and disheveled [facility] Head: normal to inspection and normocephalic Resp Effort & Inspection: normal respiratory effort Cardio Rate: regular rate GI Inspection: normal to inspection Skin Other: Patient is wounds throughout his body in various stages of healing however the largest wound is on the anterior aspect of his left lower extremity. It is approximately the size of the hand. There is and minimal surrounding erythema. No drainage. Is beefy appearing. No purulent drainage. Neuro General: patient alert and patient awake Extrem General: capillary refill normal Psych Appearance: disheveled Course Orders Ordered: ED Orders 11/07/21 12:10 Wound Culture and Gram Stain Stat Discontinued Medications Bacitracin (Bacitracin Oint 0.9 Gm Pckt) 1 applic TOP NOW ONE Stop: 11/07/21 12:13 Last Admin: 11/07/21 12:54 Dose: 1 applic Documented by: JON Vital Signs Vital signs: Vital Signs - 8 hr 11/07/21 11:25 11/07/21 12:45 Temperature 98.2 F 98.1 F Pulse Rate 78 78 Respiratory Rate 17 17 Blood Pressure 134/73 110/74 Pulse Oximetry 100 99 MDM - Skin/Abscess/Foreign Bdy MDM Narrative Medical decision making narrative: Patient is nontoxic appearing. He is disheveled. Is under arrest. Has a large wound anterior aspect of his left lower extremity. Low suspicion for abscess. Low suspicion for cellulitis. Patient would benefit from topical antibiotics and wound care and frequent dressing changes. I did discuss this with the police superintendent at bedside. He stated that he would pass that information on to the medical staff over the custodial. There is no indication for antibiotics here in the emergency department. Patient is found fit for confinement. Discharge Plan Departure Patient Disposition: Home Clinical Impression: Wound of skin, Medical clearance for incarceration Activity Restrictions/Additional Instructions: You are found fit for confinement The skin wound on the front of your left leg does require frequent cleaning and also dressing changes. I do recommend that this is done at the senior living facility. You can also use topical antibiotic ointment such as Neosporin or bacitracin. A referral was placed for wound care here at [facility]. An appointment can be made by contacting [phone]. You can return to the emergency department for any new or worsening symptoms. Prescriptions: No Action No Known Home Medications 0RF Referrals: Gamal Royal MD [Primary Care Provider] -
[2021-11-07 12:45] VITALS: BP 110/74; PULSE 78; RESP 17; TEMP 36.7; O2SAT 99
[2021-11-07] MEDS: BACITRACIN OINT 0.9 GM PCKT 1 APPLIC TOP (12:54)
== END 2021-11-07 13:08 | disposition home or self-care (01) ==
PROVIDERS: Emergency Provider Emergency Medicine; PCP Pediatrics
DX: Z00.8 Encounter for other general examination (principal); S81.802A Unspecified open wound, left lower leg, initial encounter; X58.XXXA Exposure to other specified factors, initial encounter
CPT/HCPCS: 87070; 87077; 87147; 87185; 87186; 87205; 99282

== ENCOUNTER 2022-01-17 20:16 | Emergency (ER) | payer MEDICAID, SELFPAY ==
[2021-06-10 21:25] VITALS: BMI 23.5
[2022-01-17 20:26] VITALS: BP 122/83; PULSE 109; RESP 18; TEMP 35.9; O2SAT 94; BMI 25.1
--- NOTE | 2022-01-17 20:42 | ED.WOUNDLAC ---
HPI - Wound/Laceration General Chief Complaint: Wound/Laceration Stated Complaint: kruger wound Time Seen by Provider: 01/17/22 20:42 Source: EMS Mode of arrival: EMS History of Present Illness HPI narrative: Patient is a 31-year-old male. I have evaluated him in the emergency department in the past for fit for confinement physicals. He has a longstanding left lower extremity wound. Four days ago he was discharged from correction. While he was in correction he was getting wound care with daily dressing changes and he felt like the wound was getting better. Since being discharged he has not done has many wound dressing changes. Patient is homeless. He is scheduled to go to rehab in approximately 1 week from now. Brought to the emergency department by EMS for evaluation of his leg wound. Related Data Home Medications Medication Instructions Recorded Confirmed No Known Home Medications 11/07/21 11/07/21 Allergies Allergy/AdvReac Type Severity Reaction Status Date / Time ketamine AdvReac tonic Verified 11/07/21 11:33 clonic movement Review of Systems Constitutional Comments: No fevers Musculoskeletal Musculoskeletal: Reports system reviewed and no additional complaints, except as documented and Reports as per HPI Integumentary/Breasts Comments: Wound to left kruger Hematologic/Lymphatic On Anticoagulants: No Patient History Medical History Heroin user Methamphetamine abuse Opioid use disorder Patient denies medical problems Social History marital status: number of children: 2 household members: friend(s) housing: homeless ( stays with friends) Smoking Status: Current every day smoker additional social history: 08/08/2020 essentially homeless, currently living in a tent Smoking Status: Current every day smoker alcohol intake frequency: holidays/special occasions only Substance Use Type: heroin, methamphetamine and other Exam Initial Vital Signs Initial Vital Signs: Vital Signs Temperature 96.7 F L 01/17/22 20:26 Pulse Rate 109 H 01/17/22 20:26 Respiratory Rate 18 01/17/22 20:26 Blood Pressure 122/83 01/17/22 20:26 Pulse Oximetry 94 01/17/22 20:26 HENMT Head: normal to inspection and normocephalic Skin Other: Patient has a large wound to his left kruger. It has well demarcated edges without any surrounding erythema. There is no drainage. The wound itself is actually improved from when I saw lot several months ago. Patient agrees with this. You can easily see the new skin that has been healing around the edges. There is no signs of any infection. Neuro General: patient alert, patient awake and moves all extremities Extrem General: capillary refill normal Course Vital Signs Vital signs: Vital Signs - 8 hr 01/17/22 20:26 Temperature 96.7 F L Pulse Rate 109 H Respiratory Rate 18 Blood Pressure 122/83 Pulse Oximetry 94 MDM - Wound/Laceration MDM Narrative Medical decision making narrative: Patient is nontoxic appearing. Is afebrile. The wound on his left kruger is actually improved from when I evaluated him during a fit for confinement physical several months ago. Patient agrees that the wound is improving. He is essentially here for wound care supplies to continue with the yelling process. He was provided with supplies. There is no indication for any antibiotics based on the appearance of it today. Patient does not require further workup here in the emergency department. He was given return precautions. He expressed understanding and agreement. Discharge Plan Departure Patient Disposition: Home Clinical Impression: Leg wound, left Activity Restrictions/Additional Instructions: Continue to do the dressing changes. The leg wound is much improved from the last time that I saw it. It is important that you keep it clean. Return to the emergency department for any new or worsening symptoms. Prescriptions: No Action No Known Home Medications 0RF Referrals: Gamal Royal MD [Primary Care Provider] -
== END 2022-01-17 21:00 | disposition home or self-care (01) ==
PROVIDERS: Emergency Provider Emergency Medicine; PCP Pediatrics
DX: Z48.00 Encounter for change or removal of nonsurgical wound dressing (principal); S81.802A Unspecified open wound, left lower leg, initial encounter; X58.XXXA Exposure to other specified factors, initial encounter
CPT/HCPCS: 99281

== ENCOUNTER 2022-02-08 17:38 | Emergency (ER) | payer MEDICAID, SELFPAY ==
[2021-06-10 21:25] VITALS: BMI 23.5
[2022-02-08 17:35] VITALS: BP 130/75; PULSE 94; RESP 18; TEMP 37.3; O2SAT 98; BMI 25.1
--- NOTE | 2022-02-08 17:40 | DI.RAD.S_ITS ---
PROCEDURE: XR TIBIA FIBULA LT 2V INDICATIONS: worsening infection TECHNIQUE: 2 views of the tibia and fibula were acquired. COMPARISON: [facility], CR, XR TIBIA FIBULA LT 2V, 06/10/2021, 18:16. FINDINGS: Bones: No fractures or dislocations. No suspicious bony lesions. No osseous erosive changes or periosteal reaction. Soft tissues: No suspicious soft tissue calcifications or masses. No soft tissue gas. IMPRESSION: No marta evidence of osteomyelitis. Plain film radiographs can be insensitive to osteomyelitis during the initial 15 days of the disease process. If there is clinical concern for osteomyelitis, then three-phase nuclear medicine bone scan or MRI should be considered for further evaluation. Dictated by: Maribel Lobato MD, PhD on 02/08/2022 at 18:32 Approved by: Maribel Lobato MD, PhD on 02/08/2022 at 18:32
--- NOTE | 2022-02-08 17:57 | ED.MEDCLEAR ---
HPI - Medical Clearance General Chief complaint: Medical Clearance Stated complaint: Fit for group home Time Seen by Provider: 02/08/22 17:39 Source: patient and police Mode of arrival: other History of Present Illness HPI Narrative: 31-year-old male daily smoker with history of chronic appearing left lower extremity wound that has required prior surgical intervention presents by police for medical clearance prior to incarceration. He had been receiving regular wound care with some improvement but has not with been ?following the rules ?over the past few days. He feels unwell, states there is significant increased drainage from his legs and has historically been there and is not currently taking antibiotics. He reports chills but denies any measured fever. he has had no nausea or vomiting Related Information Previous Rx's Medication Instructions Recorded doxycycline hyclate 100 mg tablet 100 mg PO BID #20 tab 02/08/22 Allergies Allergy/AdvReac Type Severity Reaction Status Date / Time ketamine AdvReac tonic Verified 11/07/21 11:33 clonic movement Review of Systems Review of Systems Narrative: GENERAL: Denies chills, fatigue, malaise, fever, sweats. HEENT: Denies sinus pain, ear pain, sore throat, difficulty swallowing, dizziness. RESPIRATORY: Denies dyspnea, cough, wheezing, hemoptysis, sputum. CARDIOVASCULAR: Denies chest pain, palpitations, orthopnea, edema, GASTROINTESTINAL: Denies nausea, vomiting, abdominal pain, diarrhea, constipation, melena. : Denies dysuria, frequency, incontinence, hematuria, urinary retention. MUSCULOSKELETAL: See HPI SKIN: See HPI NEUROLOGIC: Denies weakness, headache, numbness, change in speech, confusion, seizures, incoordination. PSYCHIATRIC: No concerning psychosocial issues. 12 point review of systems is negative except for those stated above Patient History Medical History Heroin user Methamphetamine abuse Opioid use disorder Patient denies medical problems Social History marital status: number of children: 2 household members: friend(s) housing: homeless ( stays with friends) Smoking Status: Current every day smoker additional social history: 08/08/2020 essentially homeless, currently living in a tent Smoking Status: Current every day smoker alcohol intake frequency: holidays/special occasions only Substance Use Type: heroin, methamphetamine and other Exam Narrative Exam Narrative: GENERAL: [31] year old patient appears stated age. Well-developed patient, in mild distress. HEAD: Atraumatic. Normocephalic. EYES: Pupils equal round and reactive. Extraocular motions intact. No scleral icterus. No injection or drainage. ENT: Nose without bleeding, purulent drainage. Throat without erythema, tonsillar hypertrophy or exudate. Airway patent. NECK: Trachea midline. Non tender CARDIOVASCULAR: Regular rate and rhythm without murmurs, gallops, or rubs. RESPIRATORY: Clear to auscultation. Breath sounds equal bilaterally. No wheezes, rales, or rhonchi. GASTROINTESTINAL: Abdomen soft, non-tender, nondistended. EXTREMITIES: Once uncovered patients and physician that had seen him previously (Rob) have viewed the wound and state that it is actually at his baseline and not any worse than normal on anterior kruger. There is some discoloration on the base of the left foot underlying the metatarsophalangeal joint without significant pain, erythema or drainage. BACK: Nontender without deformity or crepitance. No flank tenderness. NEURO: AOx3. SKIN: No rash or erythema of visible areas Initial Vital Signs Initial Vital Signs: Vital Signs Temperature 99.1 F 02/08/22 17:35 Pulse Rate 94 H 02/08/22 17:35 Respiratory Rate 18 02/08/22 17:35 Blood Pressure 130/75 02/08/22 17:35 Pulse Oximetry 98 02/08/22 17:35 MDM - Medical Clearance Lab Data Result diagrams: 02/08/22 19:17 02/08/22 19:17 Labs: Lab Results 02/08/22 02/08/22 Range/Units 19:17 19:17 WBC 5.1 (4.5-11.0) X10^3/uL RBC 4.12 L (4.5-5.9) X10^6/uL Hgb 11.4 L (13.5-17.5) g/dL Hct 34.3 L (41-53) % MCV 83.2 (80-100) fL MCH 27.6 (26-34) PG MCHC 33.2 (30-36) % RDW 17.2 H (11.6-14.8) % Plt Count 307 (150-400) X10^3/uL Neut % (Auto) 55.9 (50-75) % Lymph % (Auto) 28.2 (25-40) % [place] % (Auto) 7.6 (3-14) % Eos % (Auto) 6.4 H (2-4) % Baso % (Auto) 1.9 (0-2) % Neut # (Auto) 2800 (0966-8450) /uL Lymph # (Auto) 1400 (7455-4914) /uL [place] # (Auto) 400 (0-900) /uL Eos # (Auto) 300 (0-450) /uL Baso # (Auto) 100 (0-100) /uL ESR 14 (0-15) MM/HR Sodium 141 (137-145) mmol/L Potassium 3.3 L (3.4-5.1) mmol/L Chloride 110 H (98-107) mmol/L Carbon Dioxide 27 (22-32) mmol/L BUN 8 L (9-20) mg/dL Creatinine 0.60 L (0.66-1.25) mg/dL Estimated GFR > 60 (>60) mL/min BUN/Creatinine Ratio 13.3 (6-22) Glucose 84 (70-100) mg/dL Calcium 7.8 L (8.4-10.2) mg/dL Total Bilirubin 0.3 (0.2-1.3) mg/dL AST 40 (17-59) IU/L ALT 36 (<50) IU/L Alkaline Phosphatase 62 (38-126) U/L C-Reactive Protein 1.1 H (<1.0) mg/dL Total Protein 6.8 (6.3-8.2) g/dL Albumin 3.6 (3.5-5.0) g/dL Globulin 3.2 (1.7-4.1) g/dL Albumin/Globulin Ratio 1.1 (1.0-2.8) Imaging Data Extremity x-ray #1: Radiologist's Impression: Launch?[address] [address] XRay Report Signed Patient: Ambrose Jean-Baptiste MR#: [id number] : 1990 Acct:[id number] Age/Sex: 31 / M Date of Service: 02/08/22 Loc: ED Accession Number: [id number] ?? Procedure: XR tibia fibula LT 2V Ordering Provider: Yang Richmond D.O. PROCEDURE:? XR TIBIA FIBULA LT 2V ? INDICATIONS:? worsening infection ? TECHNIQUE:? 2 views of the tibia and fibula were acquired.? ? COMPARISON:? [facility], CR, XR TIBIA FIBULA LT 2V, 06/10/2021, 18:16. ? FINDINGS:? ? Bones:? No fractures or dislocations.? No suspicious bony lesions.? No osseous erosive changes or periosteal reaction.? ? Soft tissues:? No suspicious soft tissue calcifications or masses.? No soft tissue gas.? ? IMPRESSION:? No marta evidence of osteomyelitis. Plain film radiographs can be insensitive to osteomyelitis during the initial 15 days of the disease process. If there is clinical concern for osteomyelitis, then three-phase nuclear medicine bone scan or MRI should be considered for further evaluation. ? ? Dictated by: Maribel Lobato MD, PhD on 02/08/2022 at 18:32 ? ? Discharge Plan Departure Patient Disposition: Home Clinical Impression: Leg ulcer, left Instructions: How to Wrap Multilayer Compression Bandage for Leg Wounds Activity Restrictions/Additional Instructions: *You have been diagnosed with [Chronic Leg wound without evidence of underlying abscess or bone infection ] *What to do: *Please continue to take your regular medications as directed. [ ] New medication prescriptions sent to your pharmacy: [ ] [x] New medication written as a paper prescription [ ] No new medications given *Please follow up with your primary care provider in 2-3 days, call for an appointment. Let them know you were seen in the Emergency Department and that we ask that you be seen in follow up. We will electronically transmit a record of today's note if your PCP is in our system *If you do not have a primary care provider please contact the [facility] Resource line at [phone]. They will ask some questions about your medical history and help get you set up with a doctor in the community. *Return to Emergency Department if you should have any new, worsening or concerning symptoms, such as [fever greater than 101 F, shaking chills, worsening pain, persistent vomiting or other bothersome symptoms] Prescriptions: New doxycycline hyclate 100 mg tablet 100 mg PO BID Qty: 20 0RF Referrals: Nacho Lenz MD [Physician] -
[2022-02-08] MEDS: SODIUM CHLORIDE 0.9% 1,000 ML 1000 ML IV (18:36)
[2022-02-08 19:25] LABS: Add Manual Diff / Slide Review NO; Basophils Absolute Auto 100 /uL (0-100); Basophils Percent Auto 1.9 % (0-2); Eosinophils Absolute Auto 300 /uL (0-450); Eosinophils Percent Auto 6.4 % (2-4); Hematocrit 34.3 % (41-53); Hemoglobin 11.4 g/dL (13.5-17.5); Lymphocytes Absolute Auto 1400 /uL (1100-4500); Lymphocytes Percent Auto 28.2 % (25-40); Mean Corpuscular HGB Conc 33.2 % (30-36); Mean Corpuscular Hemoglobin 27.6 PG (26-34); Mean Corpuscular Volume 83.2 fL (80-100); Monocytes Absolute Auto 400 /uL (0-900); Monocytes Percent Auto 7.6 % (3-14); Neutrophils Absolute Auto 2800 /uL (1500-7000); Neutrophils Percent Auto 55.9 % (50-75); Platelet Count 307 X10^3/uL (150-400); Red Blood Cell Count 4.12 X10^6/uL (4.5-5.9); Red Cell Distribution Width 17.2 % (11.6-14.8); White Blood Cell Count 5.1 X10^3/uL (4.5-11.0)
[2022-02-08 19:39] LABS: Alanine Aminotransferase 36 IU/L (<50); Albumin 3.6 g/dL (3.5-5.0); Albumin Globulin Ratio 1.1 (1.0-2.8); Alkaline Phosphatase 62 U/L (38-126); Aspartate Aminotransferase 40 IU/L (17-59); BUN Creatinine Ratio 13.3 (6-22); Bilirubin Total 0.3 mg/dL (0.2-1.3); Blood Urea Nitrogen 8 mg/dL (9-20); C-Reactive Protein Quant 1.1 mg/dL (<1.0); Calcium 7.8 mg/dL (8.4-10.2); Carbon Dioxide 27 mmol/L (22-32); Chloride 110 mmol/L (98-107); Estimated Glomerular Filt Rate > 60 mL/min (>60); Globulin 3.2 g/dL (1.7-4.1); Glucose 84 mg/dL (70-100); HEMOLYSIS < 15 (0-50); Potassium 3.3 mmol/L (3.4-5.1); Sodium 141 mmol/L (137-145); Total Protein 6.8 g/dL (6.3-8.2)
[2022-02-08 19:44] LABS: Erythrocyte Sedimentation Rate 14 MM/HR (0-15)
[2022-02-08 20:09] VITALS: BP 138/80; PULSE 81; RESP 16; O2SAT 100
== END 2022-02-08 20:13 | disposition home or self-care (01) ==
PROVIDERS: Emergency Provider Emergency Medicine
DX: L97.229 Non-pressure chronic ulcer of left calf with unspecified severity (principal)
CPT/HCPCS: 36415; 73590; 80053; 85025; 85651; 86140; 87040; 87070; 87075; 87077; 87147; 87185; 87186; 87205; 99283; 99284

== ENCOUNTER 2022-02-17 01:12 | Emergency (ER) | payer MEDICAID, SELFPAY ==
[2021-06-10 21:25] VITALS: BMI 23.5
[2022-02-17 01:15] VITALS: BP 140/92; PULSE 109; RESP 19; TEMP 37.2; O2SAT 100; BMI 23.7
--- NOTE | 2022-02-17 01:15 | ED.MEDCLEAR ---
HPI - Medical Clearance General Chief complaint: Medical Clearance Stated complaint: leg wound Time Seen by Provider: 02/17/22 01:15 History of Present Illness HPI Narrative: 31-year-old male former smoker, also smokes methamphetamines and occasionally heroin presents by [place] for medical clearance prior to incarceration. He has been dealing with a left anterior lower extremity wound for quite some time and was most recently seen by myself a week or 2 ago. A culture had been obtained that shows Pseudomonas and MRSA, he states he has been unable to fill those. He denies systemic complaints such as fever, chills nor nausea or vomiting. He is not dizzy nor weak or lightheaded denies any chest pain or shortness of breath. He is brought for evaluation of the infection prior to incarceration. He had previously been incarcerated with this leg infection and was actually doing quite well after their ongoing and frequent treatment Related Information Previous Rx's Medication Instructions Recorded doxycycline hyclate 100 mg tablet 100 mg PO BID #20 tab 02/08/22 ciprofloxacin HCl 500 mg tablet 500 mg PO BID #20 tab 02/11/22 (Cipro) ciprofloxacin HCl 500 mg tablet 500 mg PO Q12H #20 tab 02/17/22 (Cipro) doxycycline hyclate 100 mg tablet 100 mg PO BID #20 tab 02/17/22 Allergies Allergy/AdvReac Type Severity Reaction Status Date / Time ketamine AdvReac tonic Verified 02/17/22 01:19 clonic movement Review of Systems Review of Systems Narrative: GENERAL: Denies chills, fatigue, malaise, fever, sweats. HEENT: Denies sinus pain, ear pain, sore throat, difficulty swallowing, dizziness. RESPIRATORY: Denies dyspnea, cough, wheezing, hemoptysis, sputum. CARDIOVASCULAR: Denies chest pain, palpitations, orthopnea, edema, GASTROINTESTINAL: Denies nausea, vomiting, abdominal pain, diarrhea, constipation, melena. : Denies dysuria, frequency, incontinence, hematuria, urinary retention. MUSCULOSKELETAL: denies weakness, joint pain, or bony pain SKIN: See HPI NEUROLOGIC: Denies weakness, headache, numbness, change in speech, confusion, seizures, incoordination. PSYCHIATRIC: No concerning psychosocial issues. 12 point review of systems is negative except for those stated above Patient History Medical History Heroin user Methamphetamine abuse Opioid use disorder Patient denies medical problems Social History marital status: number of children: 2 household members: friend(s) housing: homeless ( stays with friends) Smoking Status: Current every day smoker additional social history: 08/08/2020 essentially homeless, currently living in a tent Smoking Status: Current every day smoker alcohol intake frequency: holidays/special occasions only Substance Use Type: heroin, methamphetamine and other Exam Narrative Exam Narrative: GENERAL: [31 year old patient appears stated age. Well-developed patient, in mild distress. GCS 15 HEAD: Atraumatic. Normocephalic. EYES: Pupils equal round and reactive. Extraocular motions intact. No scleral icterus. No injection or drainage. ENT: Nose without bleeding, purulent drainage. Throat without erythema, tonsillar hypertrophy or exudate. Airway patent. NECK: Trachea midline. Non tender CARDIOVASCULAR: Regular rate and rhythm without murmurs, gallops, or rubs. RESPIRATORY: Clear to auscultation. Breath sounds equal bilaterally. No wheezes, rales, or rhonchi. GASTROINTESTINAL: Abdomen soft, non-tender, nondistended. EXTREMITIES: Large chronic wound on left anterior kruger, minimal drainage or surrounding erythema, no fluctuance or induration, no widespread erythema or lymphangitis. At baseline based on prior visits BACK: Nontender without deformity or crepitance. No flank tenderness. NEURO: AOx3. SKIN: No rash or erythema of visible areas Initial Vital Signs Initial Vital Signs: Vital Signs Temperature 98.9 F 02/17/22 01:15 Pulse Rate 109 H 02/17/22 01:15 Respiratory Rate 19 02/17/22 01:15 Blood Pressure 140/92 H 02/17/22 01:15 Pulse Oximetry 100 02/17/22 01:15 Discharge Plan Departure Patient Disposition: Home Clinical Impression: Leg wound, left, Medical clearance for incarceration Activity Restrictions/Additional Instructions: *You have been diagnosed with [ chronic, poorly healing wound on left leg and MEDICAL CLEARANCE FOR INCARCERATION] *What to do: *Please continue to take your regular medications as directed. [ ] New medication prescriptions sent to your pharmacy: [ ] [x ] New medication written as a paper prescription [ ] No new medications given *Please follow up with your primary care provider in 2-3 days, call for an appointment. Let them know you were seen in the Emergency Department and that we ask that you be seen in follow up. We will electronically transmit a record of today's note if your PCP is in our system *If you do not have a primary care provider please contact the [facility] Resource line at [phone]. They will ask some questions about your medical history and help get you set up with a doctor in the community. *Return to Emergency Department if you should have any new, worsening or concerning symptoms, such as [fever greater than 101 F, shaking chills, worsening pain, persistent vomiting or other bothersome symptoms] Prescriptions: New doxycycline hyclate 100 mg tablet 100 mg PO BID Qty: 20 0RF ciprofloxacin HCl [Cipro] 500 mg tablet 500 mg PO Q12H Qty: 20 0RF No Action doxycycline hyclate 100 mg tablet 100 mg PO BID Qty: 20 0RF ciprofloxacin HCl [Cipro] 500 mg tablet 500 mg PO BID Qty: 20 0RF
== END 2022-02-17 01:50 | disposition home or self-care (01) ==
PROVIDERS: Emergency Provider Emergency Medicine
DX: S81.802A Unspecified open wound, left lower leg, initial encounter (principal); Z00.8 Encounter for other general examination
CPT/HCPCS: 99281

== ENCOUNTER 2022-06-07 19:08 | Emergency (ER) | payer MEDICAID, SELFPAY ==
[2021-06-10 21:25] VITALS: BMI 23.5
[2022-06-07 19:10] VITALS: BP 134/83; BP 138/86; PULSE 102; PULSE 107; RESP 16; TEMP 37.1; O2SAT 100; BMI 27.8
--- NOTE | 2022-06-07 19:22 | CM.SWNOTE ---
METAL WINDOW SCREEN ASSEMBLER Note METAL WINDOW SCREEN ASSEMBLER receives consult to meet with patient. Patient presents to ED via EMS due to concern for OD on Fentanyl and Heroin. Patient was provided narcan during transport to ED. METAL WINDOW SCREEN ASSEMBLER is not able to meet with patient due to his level of intoxication. METAL WINDOW SCREEN ASSEMBLER to f/u with patient after medical clearance. Barbra Rose, [employer]
[2022-06-07 19:30] VITALS: PULSE 93; RESP 10; O2SAT 99
[2022-06-07 19:36] VITALS: BP 150/89; PULSE 96; RESP 17; O2SAT 100
--- NOTE | 2022-06-07 19:58 | ED.OVERDOSE ---
HPI - Overdose General Chief Complaint: Toxicology Problem Stated Complaint: OD Time Seen by Provider: 06/07/22 19:27 History of Present Illness HPI Narrative: 31-year-old male smoker with history of IV drug abuse and a poorly healing chronic wound on his left leg presents by EMS after an accidental overdose when injecting heroin. He found that his friend had also put fentanyl in the mix. He denies using any other substances such as alcohol, benzos or other. Was given Narcan in the field and is feeling much better on arrival. He denies any dizziness, weakness or lightheadedness and has no chest pain, shortness of breath or cough. Additionally he has an ongoing left lower extremity chronic wound that is been evaluated and treated on multiple occasions and visits to wound care. He states this is in its normal appearance. He is otherwise well. He denies any suicidal or homicidal intentions Related Data Previous Rx's Medication Instructions Recorded doxycycline hyclate 100 mg tablet 100 mg PO BID #20 tabs 02/08/22 ciprofloxacin HCl 500 mg tablet 500 mg PO BID #20 tabs 02/11/22 (Cipro) ciprofloxacin HCl 500 mg tablet 500 mg PO Q12H #20 tabs 02/17/22 (Cipro) doxycycline hyclate 100 mg tablet 100 mg PO BID #20 tabs 02/17/22 ciprofloxacin HCl 500 mg tablet 500 mg PO BID #20 tabs 06/07/22 (Cipro) doxycycline hyclate 100 mg tablet 100 mg PO BID #20 tabs 06/07/22 Allergies Allergy/AdvReac Type Severity Reaction Status Date / Time ketamine AdvReac tonic Verified 02/17/22 01:19 clonic movement Review of Systems Review of Systems Narrative: GENERAL: See HPI HEENT: Denies sinus pain, ear pain, sore throat, difficulty swallowing, dizziness. RESPIRATORY: Denies dyspnea, cough, wheezing, hemoptysis, sputum. CARDIOVASCULAR: Denies chest pain, palpitations, orthopnea, edema, GASTROINTESTINAL: Denies nausea, vomiting, abdominal pain, diarrhea, constipation, melena. : Denies dysuria, frequency, incontinence, hematuria, urinary retention. MUSCULOSKELETAL: denies weakness, joint pain, or bony pain SKIN: See HPI NEUROLOGIC: Denies weakness, headache, numbness, change in speech, confusion, seizures, incoordination. PSYCHIATRIC: No concerning psychosocial issues. 12 point review of systems is negative except for those stated above Patient History Medical History Heroin user Methamphetamine abuse Opioid use disorder Patient denies medical problems Social History marital status: number of children: 2 household members: friend(s) housing: homeless ( stays with friends) Smoking Status: Current every day smoker additional social history: 08/08/2020 essentially homeless, currently living in a tent Smoking Status: Current every day smoker alcohol intake frequency: holidays/special occasions only Substance Use Type: heroin, methamphetamine and other Exam Narrative Exam Narrative: GENERAL: [31] year old patient appears stated age. Well-developed patient, in mild distress. GCS 15. Speaking clearly without slurring words HEAD: Atraumatic. Normocephalic. EYES: Pupils equal round and reactive. Extraocular motions intact. No scleral icterus. No injection or drainage. ENT: Nose without bleeding, purulent drainage. Throat without erythema, tonsillar hypertrophy or exudate. Airway patent. NECK: Trachea midline. Non tender CARDIOVASCULAR: Regular rate and rhythm without murmurs, gallops, or rubs. RESPIRATORY: Clear to auscultation. Breath sounds equal bilaterally. No wheezes, rales, or rhonchi. GASTROINTESTINAL: Abdomen soft, non-tender, nondistended. EXTREMITIES: Left anterior leg with a large chronic leg wound that is swollen and erythematous with large areas of ulceration and surrounding erythema. Appears largely unchanged from prior visits, this is confirmed by patient BACK: Nontender without deformity or crepitance. No flank tenderness. NEURO: AOx3. SKIN: No rash or erythema of visible areas Initial Vital Signs Initial Vital Signs: Vital Signs Temperature 98.8 F 06/07/22 19:10 Pulse Rate 102 H 06/07/22 19:10 Respiratory Rate 16 06/07/22 19:10 Blood Pressure 134/83 06/07/22 19:10 Pulse Oximetry 100 06/07/22 19:10 Oxygen Delivery Method 06/07/22 19:10 Course Orders Ordered: Discontinued Medications Ciprofloxacin (Ciprofloxacin 250 Mg Tablet) 500 mg PO NOW ONE Stop: 06/07/22 19:51 Last Admin: 06/07/22 20:09 Dose: 500 mg Documented By: JOEL Doxycycline Hyclate (Doxycycline Hyclate 100 Mg Tablet) 100 mg PO NOW ONE Stop: 06/07/22 19:51 Last Admin: 06/07/22 20:09 Dose: 100 mg Documented By: JOEL Naloxone HCl (Naloxone 4 Mg Nasal [place]) 4 mg MISC SEEINSTR ONE Stop: 06/07/22 19:51 Last Admin: 06/07/22 20:09 Dose: 4 mg Documented By: JOEL Vital Signs Vital signs: Vital Signs - 8 hr 06/07/22 19:10 06/07/22 19:10 06/07/22 19:10 Temperature 98.8 F Pulse Rate 102 H 107 H Respiratory Rate 16 Blood Pressure 134/83 138/86 Pulse Oximetry 100 100 Oxygen Delivery Method Room Air MDM - Overdose Lab Data Result diagrams: 06/07/22 19:37 06/07/22 19:37 Labs: Lab Results 06/07/22 06/07/22 06/07/22 Range/Units 19:37 19:37 19:37 WBC 10.7 (4.5-11.0) X10^3/uL RBC 4.10 L (4.5-5.9) X10^6/uL Hgb 11.5 L (13.5-17.5) g/dL Hct 34.0 L (41-53) % MCV 83.1 (80-100) fL MCH 28.0 (26-34) PG MCHC 33.7 (30-36) % RDW 16.1 H (11.6-14.8) % Plt Count 237 (150-400) X10^3/uL Neut % (Auto) 76.0 H (50-75) % Lymph % (Auto) 10.8 L (25-40) % [place] % (Auto) 10.3 (3-14) % Eos % (Auto) 2.8 (2-4) % Baso % (Auto) 0.1 (0-2) % Neut # (Auto) 8100 H (9484-3604) /uL Lymph # (Auto) 1200 (5421-6605) /uL [place] # (Auto) 1100 H (0-900) /uL Eos # (Auto) 300 (0-450) /uL Baso # (Auto) 0 (0-100) /uL Sodium 130 L (137-145) mmol/L Potassium 3.5 (3.4-5.1) mmol/L Chloride 94 L (98-107) mmol/L Carbon Dioxide 24 (22-32) mmol/L BUN 28 H (9-20) mg/dL Creatinine 0.88 (0.66-1.25) mg/dL Estimated GFR > 60 (>60) mL/min BUN/Creatinine Ratio 31.8 H (6-22) Glucose 78 (70-100) mg/dL Calcium 8.6 (8.4-10.2) mg/dL Total Bilirubin 1.2 (0.2-1.3) mg/dL AST 72 H (17-59) IU/L ALT 40 (<50) IU/L Alkaline Phosphatase 61 (38-126) U/L Total Protein 7.8 (6.3-8.2) g/dL Albumin 4.3 (3.5-5.0) g/dL Globulin 3.5 (1.7-4.1) g/dL Albumin/Globulin Ratio 1.2 (1.0-2.8) TSH 0.985 (0.47-4.68) uIU/mL Free T4 1.50 (0.78-2.19) ng/dL Salicylates < 1.0 (<20) mg/dL Acetaminophen < 10 (10-30) ug/mL Ethyl Alcohol < 10 ( - 10) mg/dL Point of Care Testing Glucose POC 96 MDM Narrative Medical decision making narrative: Patient has accidental opioid overdose and is revived by Narcan. He is observed for a few hours after the fact and is doing quite well. Significant return precautions are discussed, patient given Narcan prepack and questions answered to his apparent satisfaction Naloxone at Discharge Patient criteria for naloxone at discharge: Already has reversal meds (patient given prepack) Discharge Plan Departure Patient Disposition: Home Clinical Impression: Accidental heroin overdose, Infected wound Instructions: DI for Substance Use Disorder Activity Restrictions/Additional Instructions: *You have been diagnosed with [accidental overdose and repeat evaluation of chronic leg wound] *What to do: *Please continue to take your regular medications as directed. [ x] New medication prescriptions sent to your pharmacy: [ [facility]] [ ] New medication written as a paper prescription [ ] No new medications given *Please follow up with your primary care provider in 2-3 days, call for an appointment. Let them know you were seen in the Emergency Department and that we ask that you be seen in follow up. We will electronically transmit a record of today's note if your PCP is in our system *If you do not have a primary care provider please contact the [facility] Resource line at [phone]. They will ask some questions about your medical history and help get you set up with a doctor in the community. *Return to Emergency Department if you should have any new, worsening or concerning symptoms, such as [fever greater than 101 F, shaking chills, worsening pain, persistent vomiting or other bothersome symptoms] Prescriptions: New ciprofloxacin HCl [Cipro] 500 mg tablet 500 mg PO BID Qty: 20 0RF doxycycline hyclate 100 mg tablet 100 mg PO BID Qty: 20 0RF No Action doxycycline hyclate 100 mg tablet 100 mg PO BID Qty: 20 0RF ciprofloxacin HCl [Cipro] 500 mg tablet 500 mg PO Q12H Qty: 20 0RF doxycycline hyclate 100 mg tablet 100 mg PO BID Qty: 20 0RF ciprofloxacin HCl [Cipro] 500 mg tablet 500 mg PO BID Qty: 20 0RF Referrals: Nacho Lenz MD [Physician] - Visit Report Forms: Patient Portal/API
[2022-06-07 20:00] VITALS: BP 149/74; PULSE 99; RESP 14; O2SAT 100
[2022-06-07 20:08] LABS: Add Manual Diff / Slide Review NO; Basophils Absolute Auto 0 /uL (0-100); Basophils Percent Auto 0.1 % (0-2); Eosinophils Absolute Auto 300 /uL (0-450); Eosinophils Percent Auto 2.8 % (2-4); Hemoglobin 11.5 g/dL (13.5-17.5); Lymphocytes Absolute Auto 1200 /uL (1100-4500); Lymphocytes Percent Auto 10.8 % (25-40); Mean Corpuscular HGB Conc 33.7 % (30-36); Mean Corpuscular Volume 83.1 fL (80-100); Monocytes Absolute Auto 1100 /uL (0-900); Monocytes Percent Auto 10.3 % (3-14); Neutrophils Absolute Auto 8100 /uL (1500-7000); Platelet Count 237 X10^3/uL (150-400); Red Cell Distribution Width 16.1 % (11.6-14.8); White Blood Cell Count 10.7 X10^3/uL (4.5-11.0)
[2022-06-07] MEDS: CIPROFLOXACIN 250 MG TABLET 500 MG PO (20:09)
[2022-06-07] MEDS: DOXYCYCLINE HYCLATE 100 MG TABLET PO (20:09)
[2022-06-07] MEDS: NALOXONE 4 MG NASAL SPRAY MISC (20:09)
[2022-06-07 20:18] LABS: Acetaminophen < 10 ug/mL (10-30); Alanine Aminotransferase 40 IU/L (<50); Albumin 4.3 g/dL (3.5-5.0); Albumin Globulin Ratio 1.2 (1.0-2.8); Alkaline Phosphatase 61 U/L (38-126); Aspartate Aminotransferase 72 IU/L (17-59); BUN Creatinine Ratio 31.8 (6-22); Bilirubin Total 1.2 mg/dL (0.2-1.3); Blood Urea Nitrogen 28 mg/dL (9-20); Calcium 8.6 mg/dL (8.4-10.2); Carbon Dioxide 24 mmol/L (22-32); Chloride 94 mmol/L (98-107); Estimated Glomerular Filt Rate > 60 mL/min (>60); Ethanol (ETOH) < 10 mg/dL; Globulin 3.5 g/dL (1.7-4.1); Glucose 78 mg/dL (70-100); HEMOLYSIS 30 (0-50); Potassium 3.5 mmol/L (3.4-5.1); Salicylate < 1.0 mg/dL (<20); Sodium 130 mmol/L (137-145); Total Protein 7.8 g/dL (6.3-8.2)
[2022-06-07 20:49] LABS: Thyroid Stimulating Hormone 0.985 uIU/mL (0.47-4.68)
== END 2022-06-07 20:15 | disposition home or self-care (01) ==
PROVIDERS: Emergency Provider Emergency Medicine
DX: T40.1X1A Poisoning by heroin, accidental (unintentional), initial encounter (principal); S81.802A Unspecified open wound, left lower leg, initial encounter
CPT/HCPCS: 80053; 80320; 80329; 84439; 84443; 85025; 93005; 99283; 99284; A9270; G0480

== ENCOUNTER 2022-07-12 05:24 | Emergency (ER) | payer MEDICAID, SELFPAY ==
[2021-06-10 21:25] VITALS: BMI 23.5
--- NOTE | 2022-07-12 05:26 | ED.EXTPRO ---
HPI - Extremity Problem <Yang Richmond DO - Last Filed: 07/12/22 20:30> General Chief complaint: Wound/Laceration Stated complaint: left leg wound Time Seen by Provider: 07/12/22 05:26 History of Present Illness HPI Narrative: 31-year-old male smoker with history of IV drug abuse and a poorly healing chronic wound on his left leg presents?with drainage from his leg. He states he just finished a course of antibiotics yesterday. He has been unable to follow-up with wound care like we had previously planned. He denies any systemic complaints such as fever or chills nor N/V/D. He admits to having recently used methamphetamines. He has no blurred or double vision. He denies chest pain, SOB or abdominal pain. He admits that his wound is much better than normal Related Data Previous Rx's Medication Instructions Recorded doxycycline hyclate 100 mg tablet 100 mg PO BID #20 tabs 02/08/22 ciprofloxacin HCl 500 mg tablet 500 mg PO BID #20 tabs 02/11/22 (Cipro) ciprofloxacin HCl 500 mg tablet 500 mg PO Q12H #20 tabs 02/17/22 (Cipro) doxycycline hyclate 100 mg tablet 100 mg PO BID #20 tabs 02/17/22 ciprofloxacin HCl 500 mg tablet 500 mg PO BID #20 tabs 06/07/22 (Cipro) doxycycline hyclate 100 mg tablet 100 mg PO BID #20 tabs 06/07/22 doxycycline hyclate 100 mg tablet 100 mg PO BID 10 days #20 tabs 07/12/22 Allergies Allergy/AdvReac Type Severity Reaction Status Date / Time ketamine AdvReac tonic Verified 02/17/22 01:19 clonic movement Review of Systems <Yang Richmond DO - Last Filed: 07/12/22 20:30> Review of Systems Narrative: GENERAL: Denies chills, fatigue, malaise, fever, sweats. HEENT: Denies sinus pain, ear pain, sore throat, difficulty swallowing, dizziness. RESPIRATORY: Denies dyspnea, cough, wheezing, hemoptysis, sputum. CARDIOVASCULAR: Denies chest pain, palpitations, orthopnea, edema, GASTROINTESTINAL: Denies nausea, vomiting, abdominal pain, diarrhea, constipation, melena. : Denies dysuria, frequency, incontinence, hematuria, urinary retention. MUSCULOSKELETAL: denies weakness, joint pain, or bony pain SKIN: See HPI NEUROLOGIC: Denies weakness, headache, numbness, change in speech, confusion, seizures, incoordination. PSYCHIATRIC: No concerning psychosocial issues. 12 point review of systems is negative except for those stated above Patient History <Yang Richmond DO - Last Filed: 07/12/22 20:30> Medical History Heroin user Methamphetamine abuse Opioid use disorder Patient denies medical problems Social History marital status: number of children: 2 household members: friend(s) housing: homeless ( stays with friends) Smoking Status: Current every day smoker additional social history: 08/08/2020 essentially homeless, currently living in a tent Smoking Status: Current every day smoker alcohol intake frequency: holidays/special occasions only Substance Use Type: heroin, methamphetamine and other Exam <Yang Richmond DO - Last Filed: 07/12/22 20:30> Narrative Exam Narrative: GENERAL: [31] year old patient appears stated age. Thin patient, in mild distress. GCS 15 HEAD: Atraumatic. Normocephalic. EYES: Pupils equal round and reactive. Extraocular motions intact. No scleral icterus. No injection or drainage. ENT: Nose without bleeding, purulent drainage. Throat without erythema, tonsillar hypertrophy or exudate. Airway patent. NECK: Trachea midline. Non tender CARDIOVASCULAR: Tachycardic but regular rhythm without murmurs, gallops, or rubs. RESPIRATORY: Clear to auscultation. Breath sounds equal bilaterally. No wheezes, rales, or rhonchi. GASTROINTESTINAL: Abdomen soft, non-tender, nondistended. EXTREMITIES: Large scabbed wound on anterior kruger, well demarcated without fluctuance or surrounding erythema, it is actually much better than historically appears BACK: Nontender without deformity or crepitance. No flank tenderness. NEURO: AOx3. SKIN: No rash or erythema of visible areas Initial Vital Signs Initial Vital Signs: Vital Signs Temperature 97.7 F 07/12/22 05:33 Pulse Rate 112 H 07/12/22 05:33 Respiratory Rate 20 07/12/22 05:33 Blood Pressure 156/103 H 07/12/22 05:33 Pulse Oximetry 95 10/07/22 05:33 Oxygen Delivery Method 07/12/22 05:33 <DO Edin Rothman Last Filed: 07/12/22 08:03> Initial Vital Signs Initial Vital Signs: Vital Signs Temperature 97.7 F 07/12/22 05:33 Pulse Rate 112 H 07/12/22 05:33 Respiratory Rate 20 07/12/22 05:33 Blood Pressure 156/103 H 07/12/22 05:33 Pulse Oximetry 95 07/12/22 05:33 Oxygen Delivery Method 07/12/22 05:33 Course <Yang Richmond DO - Last Filed: 07/12/22 20:30> Orders Ordered: Discontinued Medications Sodium Chloride (Normal Saline 0.9%) 1,000 mls @ 1,000 mls/hr IV BOLUS ONE Stop: 07/12/22 06:39 Last Infusion: 07/12/22 07:44 Dose: 0 mls/hr Documented By: Admin: 07/12/22 06:02 Dose: 1,000 mls/hr Documented By: NELSY Vital Signs Vital signs: Vital Signs - 8 hr 07/12/22 05:33 07/12/22 06:00 07/12/22 06:30 Temperature 97.7 F Pulse Rate 112 H 124 H 125 H Respiratory Rate 20 20 20 Blood Pressure 156/103 H 145/80 H 172/65 H Pulse Oximetry 95 96 97 Oxygen Delivery Method Room Air Room Air Room Air <Jesus Rivas DO - Last Filed: 07/12/22 08:03> Orders Ordered: Discontinued Medications Sodium Chloride (Normal Saline 0.9%) 1,000 mls @ 1,000 mls/hr IV BOLUS ONE Stop: 07/12/22 06:39 Last Infusion: 07/12/22 07:44 Dose: 0 mls/hr Documented By: Admin: 07/12/22 06:02 Dose: 1,000 mls/hr Documented By: NELSY Vital Signs Vital signs: Vital Signs - 8 hr 07/12/22 05:33 07/12/22 06:00 07/12/22 06:30 Temperature 97.7 F Pulse Rate 112 H 124 H 125 H Respiratory Rate 20 20 20 Blood Pressure 156/103 H 145/80 H 172/65 H Pulse Oximetry 95 96 97 Oxygen Delivery Method Room Air Room Air Room Air [facility] - Extremity (Nontraumatic) <Yang Richmond, DO - Last Filed: 07/12/22 20:30> Lab Data Result diagrams: 07/12/22 06:00 07/12/22 06:00 Labs: Lab Results 07/12/22 07/12/22 07/12/22 Range/Units 06:00 06:00 06:00 WBC 6.0 (4.5-11.0) X10^3/uL RBC 4.12 L (4.5-5.9) X10^6/uL Hgb 11.1 L (13.5-17.5) g/dL Hct 33.6 L (41-53) % MCV 81.6 (80-100) fL MCH 26.8 (26-34) PG MCHC 32.9 (30-36) % RDW 15.9 H (11.6-14.8) % Plt Count 326 (150-400) X10^3/uL Neut % (Auto) 57.3 (50-75) % Lymph % (Auto) 27.1 (25-40) % [place] % (Auto) 9.2 (3-14) % Eos % (Auto) 5.7 H (2-4) % Baso % (Auto) 0.7 (0-2) % Neut # (Auto) 3400 (6820-9595) /uL Lymph # (Auto) 1600 (2792-8397) /uL [place] # (Auto) 500 (0-900) /uL Eos # (Auto) 300 (0-450) /uL Baso # (Auto) 0 (0-100) /uL ESR 18 H (0-15) MM/HR Sodium 140 (137-145) mmol/L Potassium 3.8 (3.4-5.1) mmol/L Chloride 105 (98-107) mmol/L Carbon Dioxide 28 (22-32) mmol/L BUN 9 (9-20) mg/dL Creatinine 0.75 (0.66-1.25) mg/dL Estimated GFR > 60 (>60) mL/min BUN/Creatinine Ratio 12.0 (6-22) Glucose 104 H (70-100) mg/dL Lactate (0.7-2.1) mmol/L Calcium 8.6 (8.4-10.2) mg/dL Total Bilirubin 0.5 (0.2-1.3) mg/dL AST 52 (17-59) IU/L ALT 33 (<50) IU/L Alkaline Phosphatase 102 (38-126) U/L C-Reactive Protein 0.6 (<1.0) mg/dL Total Protein 7.8 (6.3-8.2) g/dL Albumin 3.7 (3.5-5.0) g/dL Globulin 4.1 (1.7-4.1) g/dL Albumin/Globulin Ratio 0.9 L (1.0-2.8) Urine RBC (0-5/HPF) Urine WBC (0-5/HPF) Ur Squamous Epith Cells (0-5/HPF) Calcium Oxalate Crystal Urine Bacteria (None) Urine Mucus (Negative) Ur Culture Indicated? U Opiates 300ng/mL cut (Negative) Ur Oxycodone Screen (Negative) Urine Methadone Screen (Negative) Ur Barbiturates Screen (Negative) U Tricyclic Antidepress (Negative) Ur Phencyclidine Scrn (Negative) Ur Amphetamines Screen (Negative) U Methamphetamines Scrn (Negative) Ur MDMA Scrn (Ecstasy) (Negative) U Benzodiazepines Scrn (Negative) Urine Cocaine Screen (Negative) U Marijuana (THC) Screen (Negative) 07/12/22 07/12/22 07/12/22 Range/Units 06:00 07:44 07:44 WBC (4.5-11.0) X10^3/uL RBC (4.5-5.9) X10^6/uL Hgb (13.5-17.5) g/dL Hct (41-53) % MCV (80-100) fL MCH (26-34) PG MCHC (30-36) % RDW (11.6-14.8) % Plt Count (150-400) X10^3/uL Neut % (Auto) (50-75) % Lymph % (Auto) (25-40) % [place] % (Auto) (3-14) % Eos % (Auto) (2-4) % Baso % (Auto) (0-2) % Neut # (Auto) (5950-9298) /uL Lymph # (Auto) (8552-4467) /uL [place] # (Auto) (0-900) /uL Eos # (Auto) (0-450) /uL Baso # (Auto) (0-100) /uL ESR (0-15) MM/HR Sodium (137-145) mmol/L Potassium (3.4-5.1) mmol/L Chloride (98-107) mmol/L Carbon Dioxide (22-32) mmol/L BUN (9-20) mg/dL Creatinine (0.66-1.25) mg/dL Estimated GFR (>60) mL/min BUN/Creatinine Ratio (6-22) Glucose (70-100) mg/dL Lactate 0.8 (0.7-2.1) mmol/L Calcium (8.4-10.2) mg/dL Total Bilirubin (0.2-1.3) mg/dL AST (17-59) IU/L ALT (<50) IU/L Alkaline Phosphatase (38-126) U/L C-Reactive Protein (<1.0) mg/dL Total Protein (6.3-8.2) g/dL Albumin (3.5-5.0) g/dL Globulin (1.7-4.1) g/dL Albumin/Globulin Ratio (1.0-2.8) Urine RBC 1-5/hpf (0-5/HPF) Urine WBC None seen (0-5/HPF) Ur Squamous Epith Cells 1-5 /hpf (0-5/HPF) Calcium Oxalate Crystal Moderate H Urine Bacteria None seen (None) Urine Mucus 1+ H (Negative) Ur Culture Indicated? Cult not indicated U Opiates 300ng/mL cut Positive H (Negative) Ur Oxycodone Screen Negative (Negative) Urine Methadone Screen Negative (Negative) Ur Barbiturates Screen Negative (Negative) U Tricyclic Antidepress Negative (Negative) Ur Phencyclidine Scrn Negative (Negative) Ur Amphetamines Screen Positive H (Negative) U Methamphetamines Scrn Positive H (Negative) Ur MDMA Scrn (Ecstasy) Positive H (Negative) U Benzodiazepines Scrn Negative (Negative) Urine Cocaine Screen Negative (Negative) U Marijuana (THC) Screen Negative (Negative) Urine Dip Bedside Urine Glucose Negative Bedside Urine Bilirubin - Negative Bedside Urine Ketone - Negative Urine Specific [place] 1.030 Bedside Urine Occult Blood - Negative Bedside Urine pH 6.0 Bedside Urine Protein +/- 15 Bedside Urine Urobilinogen - Negative Bedside Urine Nitrite - Negative Bedside Urine Leukocytes - Negative Esterase <Jesus Rivas DO - Last Filed: 07/12/22 08:03> Lab Data Labs: Lab Results 07/12/22 07/12/22 07/12/22 Range/Units 06:00 06:00 06:00 WBC 6.0 (4.5-11.0) X10^3/uL RBC 4.12 L (4.5-5.9) X10^6/uL Hgb 11.1 L (13.5-17.5) g/dL Hct 33.6 L (41-53) % MCV 81.6 (80-100) fL MCH 26.8 (26-34) PG MCHC 32.9 (30-36) % RDW 15.9 H (11.6-14.8) % Plt Count 326 (150-400) X10^3/uL Neut % (Auto) 57.3 (50-75) % Lymph % (Auto) 27.1 (25-40) % [place] % (Auto) 9.2 (3-14) % Eos % (Auto) 5.7 H (2-4) % Baso % (Auto) 0.7 (0-2) % Neut # (Auto) 3400 (6760-6440) /uL Lymph # (Auto) 1600 (7262-5553) /uL [place] # (Auto) 500 (0-900) /uL Eos # (Auto) 300 (0-450) /uL Baso # (Auto) 0 (0-100) /uL ESR 18 H (0-15) MM/HR Sodium 140 (137-145) mmol/L Potassium 3.8 (3.4-5.1) mmol/L Chloride 105 (98-107) mmol/L Carbon Dioxide 28 (22-32) mmol/L BUN 9 (9-20) mg/dL Creatinine 0.75 (0.66-1.25) mg/dL Estimated GFR > 60 (>60) mL/min BUN/Creatinine Ratio 12.0 (6-22) Glucose 104 H (70-100) mg/dL Lactate (0.7-2.1) mmol/L Calcium 8.6 (8.4-10.2) mg/dL Total Bilirubin 0.5 (0.2-1.3) mg/dL AST 52 (17-59) IU/L ALT 33 (<50) IU/L Alkaline Phosphatase 102 (38-126) U/L C-Reactive Protein 0.6 (<1.0) mg/dL Total Protein 7.8 (6.3-8.2) g/dL Albumin 3.7 (3.5-5.0) g/dL Globulin 4.1 (1.7-4.1) g/dL Albumin/Globulin Ratio 0.9 L (1.0-2.8) Urine RBC (0-5/HPF) Urine WBC (0-5/HPF) Ur Squamous Epith Cells (0-5/HPF) Calcium Oxalate Crystal Urine Bacteria (None) Urine Mucus (Negative) Ur Culture Indicated? U Opiates 300ng/mL cut (Negative) Ur Oxycodone Screen (Negative) Urine Methadone Screen (Negative) Ur Barbiturates Screen (Negative) U Tricyclic Antidepress (Negative) Ur Phencyclidine Scrn (Negative) Ur Amphetamines Screen (Negative) U Methamphetamines Scrn (Negative) Ur MDMA Scrn (Ecstasy) (Negative) U Benzodiazepines Scrn (Negative) Urine Cocaine Screen (Negative) U Marijuana (THC) Screen (Negative) 07/12/22 07/12/22 07/12/22 Range/Units 06:00 07:44 07:44 WBC (4.5-11.0) X10^3/uL RBC (4.5-5.9) X10^6/uL Hgb (13.5-17.5) g/dL Hct (41-53) % MCV (80-100) fL MCH (26-34) PG MCHC (30-36) % RDW (11.6-14.8) % Plt Count (150-400) X10^3/uL Neut % (Auto) (50-75) % Lymph % (Auto) (25-40) % [place] % (Auto) (3-14) % Eos % (Auto) (2-4) % Baso % (Auto) (0-2) % Neut # (Auto) (1672-3427) /uL Lymph # (Auto) (1511-5226) /uL [place] # (Auto) (0-900) /uL Eos # (Auto) (0-450) /uL Baso # (Auto) (0-100) /uL ESR (0-15) MM/HR Sodium (137-145) mmol/L Potassium (3.4-5.1) mmol/L Chloride (98-107) mmol/L Carbon Dioxide (22-32) mmol/L BUN (9-20) mg/dL Creatinine (0.66-1.25) mg/dL Estimated GFR (>60) mL/min BUN/Creatinine Ratio (6-22) Glucose (70-100) mg/dL Lactate 0.8 (0.7-2.1) mmol/L Calcium (8.4-10.2) mg/dL Total Bilirubin (0.2-1.3) mg/dL AST (17-59) IU/L ALT (<50) IU/L Alkaline Phosphatase (38-126) U/L C-Reactive Protein (<1.0) mg/dL Total Protein (6.3-8.2) g/dL Albumin (3.5-5.0) g/dL Globulin (1.7-4.1) g/dL Albumin/Globulin Ratio (1.0-2.8) Urine RBC 1-5/hpf (0-5/HPF) Urine WBC None seen (0-5/HPF) Ur Squamous Epith Cells 1-5 /hpf (0-5/HPF) Calcium Oxalate Crystal Moderate H Urine Bacteria None seen (None) Urine Mucus 1+ H (Negative) Ur Culture Indicated? Cult not indicated U Opiates 300ng/mL cut Positive H (Negative) Ur Oxycodone Screen Negative (Negative) Urine Methadone Screen Negative (Negative) Ur Barbiturates Screen Negative (Negative) U Tricyclic Antidepress Negative (Negative) Ur Phencyclidine Scrn Negative (Negative) Ur Amphetamines Screen Positive H (Negative) U Methamphetamines Scrn Positive H (Negative) Ur MDMA Scrn (Ecstasy) Positive H (Negative) U Benzodiazepines Scrn Negative (Negative) Urine Cocaine Screen Negative (Negative) U Marijuana (THC) Screen Negative (Negative) Urine Dip Bedside Urine Glucose Negative Bedside Urine Bilirubin - Negative Bedside Urine Ketone - Negative Urine Specific [place] 1.030 Bedside Urine Occult Blood - Negative Bedside Urine pH 6.0 Bedside Urine Protein +/- 15 Bedside Urine Urobilinogen - Negative Bedside Urine Nitrite - Negative Bedside Urine Leukocytes - Negative Esterase MDM Narrative Medical decision making narrative: Dr Rivas: Received turned over. Reviewed patient's history and physical exam. Performed my own independent exam. He is here for evaluation of a chronic wound on his left lower extremity. Have seen him multiple times for the same wound. Today's evaluation shows a wound that is very similar to prior however it is crusted where before it has been more ulcerated. There is minimal surrounding erythema. He has been on a antibiotic for the past couple days. He does not know what antibiotic it was. When he was here about a month ago he was discharged with ciprofloxacin and doxycycline. He states that he went to pick these medications up but they were too expensive so he started taking an antibiotic that his friend's girlfriend had. He thinks that the wound appears much better today than what it has in the past. He arrived tachycardic and with a respiratory rate in the 20s but he did admit to using illicit drugs within the past 24 hours and he thinks that his heart rate is elevated because of that. Initial provider was considering sepsis however patient's labs are reassuring and the patient is nontoxic appearing. He is disheveled. A wound culture was taken of the wound. Unsure this will be helpful since he has been on an unknown antibiotic for the past couple days and I suspect that this is probably more of a chronic issue than an acute bacterial infection however given his health status I feel putting him on antibiotics is not unreasonable. Was sent to the pharmacy of his choice he stated that he will try to pay for these antibiotics. Another wound care consult was placed for him. He was given return precautions. He expressed understanding and agreement. Discharge Plan Departure Patient Disposition: Home Clinical Impression: Leg ulcer, left Activity Restrictions/Additional Instructions: A referral was placed for wound care. Please call [phone] to establish a follow-up appointment. A prescription for antibiotics was sent to [facility]. Please pick them up and take them as directed. Prescriptions: New doxycycline hyclate 100 mg tablet 100 mg PO BID 10 Days Qty: 20 0RF No Action doxycycline hyclate 100 mg tablet 100 mg PO BID Qty: 20 0RF ciprofloxacin HCl [Cipro] 500 mg tablet 500 mg PO Q12H Qty: 20 0RF doxycycline hyclate 100 mg tablet 100 mg PO BID Qty: 20 0RF ciprofloxacin HCl [Cipro] 500 mg tablet 500 mg PO BID Qty: 20 0RF ciprofloxacin HCl [Cipro] 500 mg tablet 500 mg PO BID Qty: 20 0RF doxycycline hyclate 100 mg tablet 100 mg PO BID Qty: 20 0RF Visit Report Forms: Patient Portal/API
[2022-07-12 05:33] VITALS: BP 156/103; PULSE 112; RESP 20; TEMP 36.5; O2SAT 95; BMI 24.4
[2022-07-12 06:00] VITALS: BP 145/80; PULSE 124; RESP 20; O2SAT 96
[2022-07-12] MEDS: SODIUM CHLORIDE 0.9% 1,000 ML 1000 ML IV (06:02)
[2022-07-12 06:22] LABS: Add Manual Diff / Slide Review NO; Basophils Absolute Auto 0 /uL (0-100); Basophils Percent Auto 0.7 % (0-2); Eosinophils Absolute Auto 300 /uL (0-450); Eosinophils Percent Auto 5.7 % (2-4); Hematocrit 33.6 % (41-53); Hemoglobin 11.1 g/dL (13.5-17.5); Lymphocytes Absolute Auto 1600 /uL (1100-4500); Lymphocytes Percent Auto 27.1 % (25-40); Mean Corpuscular HGB Conc 32.9 % (30-36); Mean Corpuscular Hemoglobin 26.8 PG (26-34); Mean Corpuscular Volume 81.6 fL (80-100); Monocytes Absolute Auto 500 /uL (0-900); Monocytes Percent Auto 9.2 % (3-14); Neutrophils Absolute Auto 3400 /uL (1500-7000); Neutrophils Percent Auto 57.3 % (50-75); Platelet Count 326 X10^3/uL (150-400); Red Blood Cell Count 4.12 X10^6/uL (4.5-5.9); Red Cell Distribution Width 15.9 % (11.6-14.8)
[2022-07-12 06:25] LABS: Lactate (Lactic Acid) 0.8 mmol/L (0.7-2.1)
[2022-07-12 06:26] LABS: Alanine Aminotransferase 33 IU/L (<50); Albumin 3.7 g/dL (3.5-5.0); Albumin Globulin Ratio 0.9 (1.0-2.8); Alkaline Phosphatase 102 U/L (38-126); Aspartate Aminotransferase 52 IU/L (17-59); Bilirubin Total 0.5 mg/dL (0.2-1.3); Blood Urea Nitrogen 9 mg/dL (9-20); Calcium 8.6 mg/dL (8.4-10.2); Carbon Dioxide 28 mmol/L (22-32); Chloride 105 mmol/L (98-107); Estimated Glomerular Filt Rate > 60 mL/min (>60); Globulin 4.1 g/dL (1.7-4.1); Glucose 104 mg/dL (70-100); HEMOLYSIS < 15 (0-50); Potassium 3.8 mmol/L (3.4-5.1); Sodium 140 mmol/L (137-145); Total Protein 7.8 g/dL (6.3-8.2)
[2022-07-12 06:30] VITALS: BP 172/65; PULSE 125; RESP 20; O2SAT 97
[2022-07-12 06:35] LABS: Erythrocyte Sedimentation Rate 18 MM/HR (0-15)
[2022-07-12 07:00] VITALS: BP 177/78
[2022-07-12 07:30] VITALS: PULSE 118; O2SAT 97
[2022-07-12 07:39] LABS: C-Reactive Protein Quant 0.6 mg/dL (<1.0)
[2022-07-12 08:29] LABS: Ur Creatinine Normal (Normal); Ur Specific Gravity Normal (Normal); Urine Cocaine Negative (Negative); Urine Tetrahydrocannabinol Negative (Negative); Urine pH Normal (Normal)
[2022-07-12 08:30] LABS: UR Morphine/Opiate cutoff 300 Positive (Negative); Urine Amphetamines Positive (Negative); Urine Barbiturates Negative (Negative); Urine Benzodiazepines Negative (Negative); Urine MDMA Positive (Negative); Urine Methadone Negative (Negative); Urine Methamphetamines Positive (Negative); Urine Oxycodone Negative (Negative); Urine Phencyclidine Negative (Negative); Urine Tricyclic Antidepressant Negative (Negative)
[2022-07-12 08:41] LABS: Bacteria Urine None Seen; Calcium Oxalate Crystals Urine Moderate; Culture Indicated Urine Cult Not Indicated; Mucus Urine 1+ (Negative); RBC Urine 1-5/HPF (0-5/HPF); Squamous Epithelial Cell Urine 1-5 /HPF (0-5/HPF); WBC Urine None Seen (0-5/HPF)
== END 2022-07-12 08:16 | disposition home or self-care (01) ==
PROVIDERS: Emergency Medicine; Emergency Provider Emergency Medicine
DX: L97.929 Non-pressure chronic ulcer of unspecified part of left lower leg with unspecified severity (principal); R00.0 Tachycardia, unspecified
CPT/HCPCS: 36415; 80053; 80305; 81003; 81015; 83605; 85025; 85651; 86140; 87040; 87070; 87147; 87205; 99283; 99284

== ENCOUNTER 2022-10-18 16:08 | Emergency (ER) | payer MEDICAID, SELFPAY ==
[2021-06-10 21:25] VITALS: BMI 23.5
[2022-10-18 16:45] VITALS: BP 128/82; PULSE 102; RESP 20; TEMP 36.9; O2SAT 97; BMI 23.0
--- NOTE | 2022-10-18 19:49 | PC.NURSE ---
Pt called 30 min after triage and dressing change.
== END 2022-10-18 17:00 | disposition left against medical advice (07) ==
PROVIDERS: Emergency Provider Emergency Medicine
DX: S81.802A Unspecified open wound, left lower leg, initial encounter (principal)
CPT/HCPCS: 87070; 87077; 87186; 87205; 99281

== ENCOUNTER 2022-11-26 17:16 | Emergency (ER) | payer MEDICAID, SELFPAY ==
[2021-06-10 21:25] VITALS: BMI 23.5
[2022-11-26 17:30] VITALS: BP 158/71; PULSE 116; RESP 16; TEMP 36.7; O2SAT 97; BMI 23.6
--- NOTE | 2022-11-26 17:33 | ED_ITS ---
HPI - Wound/Laceration General Chief Complaint: Wound/Laceration Stated Complaint: Fit for Care Home Time Seen by Provider: 11/26/22 17:28 History of Present Illness HPI narrative: 32-year-old male smoker with history fentanyl and methamphetamine use and a chronic poorly healing wound on his left anterior leg presents for medical clearance prior to incarceration. He has been doing wound dressings at home and states it has been a few months since he has been on antibiotics. He denies any systemic complaints such as fever chills nor nausea or vomiting. He is had no chest pain, shortness of breath or diarrhea. He states he last used fentanyl sometime yesterday. He is awake, alert and oriented. He states that there has been some increasing drainage and foul smell from his wound over the past week or so. He has been here multiple times for evaluation of this over the past year or 2 and typically cultures demonstrate staph and Pseudomonas, prescriptions for Cipro and doxycycline have been given on multiple prior occasions. Related Data Previous Rx's Medication Instructions Recorded doxycycline hyclate 100 mg tablet 100 mg PO BID #20 tabs 02/08/22 ciprofloxacin HCl 500 mg tablet 500 mg PO BID #20 tabs 02/11/22 (Cipro) ciprofloxacin HCl 500 mg tablet 500 mg PO Q12H #20 tabs 02/17/22 (Cipro) doxycycline hyclate 100 mg tablet 100 mg PO BID #20 tabs 02/17/22 ciprofloxacin HCl 500 mg tablet 500 mg PO BID #20 tabs 06/07/22 (Cipro) doxycycline hyclate 100 mg tablet 100 mg PO BID #20 tabs 06/07/22 ciprofloxacin HCl 500 mg tablet 500 mg PO BID #20 tabs 11/26/22 (Cipro) doxycycline hyclate 100 mg tablet 100 mg PO BID #20 tabs 11/26/22 Allergies Allergy/AdvReac Type Severity Reaction Status Date / Time ketamine AdvReac tonic Verified 02/17/22 01:19 clonic movement Review of Systems Review of Systems Narrative: GENERAL: Denies chills, fatigue, malaise, fever, sweats. HEENT: Denies sinus pain, ear pain, sore throat, difficulty swallowing, dizziness. RESPIRATORY: Denies dyspnea, cough, wheezing, hemoptysis, sputum. CARDIOVASCULAR: Denies chest pain, palpitations, orthopnea, edema, GASTROINTESTINAL: Denies nausea, vomiting, abdominal pain, diarrhea, constipation, melena. : Denies dysuria, frequency, incontinence, hematuria, urinary retention. MUSCULOSKELETAL: denies weakness, joint pain, or bony pain SKIN: See HPI NEUROLOGIC: Denies weakness, headache, numbness, change in speech, confusion, seizures, incoordination. PSYCHIATRIC: No concerning psychosocial issues. 12 point review of systems is negative except for those stated above Patient History Medical History Heroin user Methamphetamine abuse Opioid use disorder Patient denies medical problems Social History marital status: number of children: 2 household members: friend(s) housing: homeless ( stays with friends) Smoking Status: Current every day smoker additional social history: 08/08/2020 essentially homeless, currently living in a tent Smoking Status: Current every day smoker tobacco type: cigarettes alcohol intake frequency: holidays/special occasions only Substance Use Type: heroin, opiates, methamphetamine and other Exam Narrative Exam Narrative: GENERAL: [32] year old patient appears stated age. Well-developed patient, in mild distress. HEAD: Atraumatic. Normocephalic. EYES: Pupils equal round and reactive. Extraocular motions intact. No scleral icterus. No injection or drainage. ENT: Nose without bleeding, purulent drainage. Throat without erythema, tonsillar hypertrophy or exudate. Airway patent. NECK: Trachea midline. Non tender CARDIOVASCULAR: Slightly tachycardic and regular rhythm without murmurs, gallops, or rubs. RESPIRATORY: Clear to auscultation. Breath sounds equal bilaterally. No wheezes, rales, or rhonchi. GASTROINTESTINAL: Abdomen soft, non-tender, nondistended. EXTREMITIES: Large, poorly healing wound on left anterior kruger with some foul- smelling drainage which has been cultured, no fluctuance or induration, there is some surrounding erythema, not circumferential, no lymphangitis. Largely at baseline per my prior evaluations BACK: Nontender without deformity or crepitance. No flank tenderness. NEURO: AOx3. SKIN: No rash or erythema of visible areas Initial Vital Signs Initial Vital Signs: Vital Signs Temperature 98.1 F 11/26/22 17:30 Pulse Rate 116 H 11/26/22 17:30 Respiratory Rate 16 11/26/22 17:30 Blood Pressure 158/71 H 11/26/22 17:30 Pulse Oximetry 97 11/26/22 17:30 Oxygen Delivery Method 11/26/22 17:30 Course Orders Ordered: ED Orders 11/26/22 17:28 Wound Culture and Gram Stain Stat Vital Signs Vital signs: Vital Signs - 8 hr 11/26/22 17:30 Temperature 98.1 F Pulse Rate 116 H Respiratory Rate 16 Blood Pressure 158/71 H Pulse Oximetry 97 Oxygen Delivery Method Room Air MDM - Wound/Laceration MDM Narrative Medical decision making narrative: [32-year-old male with history of fentanyl and methamphetamine use presents for medical clearance and evaluation of left anterior kruger] Multiple etiologies for patient's symptoms considered including, but not limited to: Cellulitis versus abscess versus other Prior Charts reviewed: Multiple prior visits for same Patient requiring medical clearance prior to incarceration. Chronic wound has some increased drainage and surrounding erythema but not circumferential, no signs of abscess or lymphangitis. Patient appropriate for discharge, prescriptions for Cipro and doxycycline given. Discussion with police, they can perform wound care at the senior care Findings and discharge diagnosis discussed with patient/family followed by verbalization of understanding Return precautions discussed with patient/family whom verbalize understanding of diagnosis and plan Discharge Plan Departure Patient Disposition: Released, Other Clinical Impression: Leg wound, left, Medical clearance for incarceration Activity Restrictions/Additional Instructions: *You have been diagnosed with [acute on chronic left lower extremity wound, largely unchanged from previous visits, wound culture obtained] *What to do: *Please continue to take your regular medications as directed. [ ] New medication prescriptions sent to your pharmacy: [ ] [x ] New medication written as a paper prescription [ ] No new medications given *Please follow up with your primary care provider in 2-3 days, call for an appointment. Let them know you were seen in the Emergency Department and that we ask that you be seen in follow up. We will electronically transmit a record of today's note if your PCP is in our system *If you do not have a primary care provider please contact the [facility] Resource line at [phone]. They will ask some questions about your medical history and help get you set up with a doctor in the community. *Return to Emergency Department if you should have any new, worsening or concerning symptoms, such as [fever greater than 101 F, shaking chills, worsening pain, persistent vomiting or other bothersome symptoms] Prescriptions: New ciprofloxacin HCl [Cipro] 500 mg tablet 500 mg PO BID Qty: 20 0RF doxycycline hyclate 100 mg tablet 100 mg PO BID Qty: 20 0RF No Action doxycycline hyclate 100 mg tablet 100 mg PO BID Qty: 20 0RF ciprofloxacin HCl [Cipro] 500 mg tablet 500 mg PO Q12H Qty: 20 0RF doxycycline hyclate 100 mg tablet 100 mg PO BID Qty: 20 0RF ciprofloxacin HCl [Cipro] 500 mg tablet 500 mg PO BID Qty: 20 0RF ciprofloxacin HCl [Cipro] 500 mg tablet 500 mg PO BID Qty: 20 0RF doxycycline hyclate 100 mg tablet 100 mg PO BID Qty: 20 0RF Referrals: [facility] [Outside] Nacho Lenz MD [Non-Staff] - Miscellaneous,MD Miladis [Primary Care Provider] - Stand Alone Forms: Patient Portal/API
== END 2022-11-26 17:38 | disposition home or self-care (01) ==
PROVIDERS: Emergency Provider Emergency Medicine
DX: S81.802A Unspecified open wound, left lower leg, initial encounter (principal)
CPT/HCPCS: 87070; 87075; 87077; 87147; 87186; 87205; 99281; 99282